=== PATIENT | female | born 1975 | race Caucasian/White ===

== ENCOUNTER 2019-09-19 10:02 | Emergency (ER) | payer OTHER, SELFPAY ==
[2019-09-19 10:27] VITALS: BP 140/95; PULSE 77; RESP 20; TEMP 36.8; O2SAT 99
--- NOTE | 2019-09-19 10:50 | ED.GENADULT ---
HPI - General Adult General Chief complaint: Upper Respiratory Infection Stated complaint: cough/congested Time Seen by Provider: 09/19/19 10:50 Source: patient and RN notes reviewed Mode of arrival: ambulatory Limitations: no limitations History of Present Illness HPI narrative: 44-year-old female presents with complains of upper respiratory infection symptoms, facial congestion and pressure, clogged ears, and dry cough for 4 days. Advil cold and sinus, Sudafed, and Benadryl with little relief. Constant dry cough. Rhinorrhea (green drainage) and nasal congestion. Denies sore throat. No high fevers, drooling, neck or throat swelling. No chest pain, wheezing, or shortness of breath. No exacerbation factors. Denies nausea, vomiting, and abdominal pain. Tolerating liquids well. All denies being , LMP 09/18/19. Some parts of this dictation were generated by voice recognition software and may contain typographical and/or grammatical inaccuracies. Related Data Allergies Allergy/AdvReac Type Severity Reaction Status Date / Time No Known Allergies Allergy Unknown Unverified 09/19/19 10:25 Review of Systems Review of Systems: Narrative: CONSTITUTIONAL: Denies fever, chills, sweats. EYES: Denies visual changes, redness, discharge. ENT: Complains of rhinorrhea, congestion, facial pressure and congestion, clogged ears. Denies sore throat, otalgia. CARDIOVASCULAR: Denies chest pain, palpitations, edema. RESPIRATORY: Denies dyspnea, wheezing. Complains of dry cough. GASTROINTESTINAL: Denies abdominal pain, nausea, vomiting, diarrhea. GENITOURINARY: Denies dysuria, hematuria, abnormal discharge. SKIN: Denies rash or itching. MUSCULOSKELETAL: Denies acute back pain, joint pain, or myalgia. NEUROLOGIC: Denies numbness or focal weakness. PSYCHIATRIC: Denies anxiety or depression. All systems reviewed & are unremarkable except as noted in HPI and below. [facility] Past Medical History Medical History (Updated 09/24/19 @ 00:14 by PB Nichols) Hypertension Ovarian cyst Surgical History Surgical History (Updated 09/24/19 @ 00:14 by PB Nichols) History of elbow surgery History of endometrial ablation History of tonsillectomy Family History Family History Grandparent Diabetes mellitus Cerebrovascular accident Carcinoma of colon Mother Hypertension Family history of malignant neoplasm of breast in first degree relative, Onset Age: 49 Social History Social History (Updated 09/24/19 @ 00:09 by PB Nichols) Smoking status: Never smoker Second hand tobacco smoke exposure: No Alcohol intake: current Substance use: never Living arrangements: with family Occupation/Education: occupation Gender identity (if verbalized by the patient): Female Comments At time of signature, agree with nurse past medical, surgical, social, and family history. There is no relevant family history pertinent to the presenting complaint. Exam Narrative: Exam Narrative: GENERAL: This is a well-nourished, well-developed patient, in no apparent distress. Talks in full sentences and ambulates with steady gait without dyspnea. HEAD: normocephalic, atraumatic. EYES: PERRL. Sclera clear/white. Vision is grossly intact. EARS: External ears normal, auditory canals clear and without drainage, TMs normal without perforation. Hearing grossly intact. NOSE: External nose normal with no obvious nasal discharge, nares with moderate redness and enlarged turbinates, clear rhinorrhea. THROAT: Mucous membranes moist, posterior pharynx clear. Mild erythema, no exudate, and no tonsils. NECK: Neck supple, non-tender without lymphadenopathy, masses or thyromegaly. CARDIOVASCULAR: Regular rate and rhythm without murmurs, gallops, or rubs. RESPIRATORY: Clear to auscultation. Breath sounds equal bilaterally. No wheezes, rales, or rhonchi. Dry cough. GASTROINTE
== END 2019-09-19 11:09 | disposition home or self-care (01) ==
PROVIDERS: Emergency Provider Nurse Practitioner Family
DX: J40 Bronchitis, not specified as acute or chronic (principal)
CPT/HCPCS: 87804; 99213; G0463

== ENCOUNTER 2019-10-05 08:39 | Outpatient (CLI) | payer OTHER, SELFPAY ==
--- NOTE | ~2019-10-05 | MMUS_ITS ---
EXAMINATION: MM diagnostic mammo unilat LT, US breast LT limited HISTORY: Benign left breast biopsy recently. TECHNIQUE: Additional 3-D tomosynthesis images of the left breast were performed and synthetic 2-D im ages were generated. CAD analysis was submitted and interpreted. High resolution left breast ultrasou nd was performed. COMPARISON: Comparison to multiple prior studies sequentially, with oldest reviewed study dated 03/06. FINDINGS: MAMMOGRAPHIC FINDINGS: The breasts are heterogenously dense, which may obscure small masses. Subareolar asymmetries of the l eft breast are unchanged allowing for differences of technique. No new masses, calcifications or arch itectural distortion. ULTRASOUND: At 12:00, 6.5 cm from the nipple, there is a 1 cm intramammary lymph node. At 12:00, 4 cm from the ni pple there is a cluster of cysts measuring 6 mm in conglomeration. Also at this location there is an 8 mm simple cyst. No suspicious masses are identified to suggest malignancy. IMPRESSION: 1. Benign left breast masses. No evidence for malignancy. 2. Routine yearly screening mammogram and regular clinical breast examination are recommended. BI-RADS CATEGORY 2 - BENIGN FINDINGS Reviewed, dictated and finalized at location A. [facility] IMPRESSION: 1. Benign left breast masses. No evidence for malignancy. 2. Routine yearly screening mammogram and regular clinical breast examination a re recommended. BI-RADS CATEGORY 2 - BENIGN FINDINGS
== END 2019-10-05 08:40 | disposition home or self-care (01) ==
LOC: CHSIMG 08:42
PROVIDERS: PCP Nurse Practitioner Family; Visit Provider Student in an Organized Health Care Education/Training Program
DX: R92.8 Other abnormal and inconclusive findings on diagnostic imaging of breast (principal)
CPT/HCPCS: 76642; 77065

== ENCOUNTER 2020-02-15 11:59 | Outpatient (CLI) | payer OTHER, SELFPAY ==
[2020-02-15 13:39] LABS: Alanine Aminotransferase 28 U/L (14-59); Albumin Level 3.9 g/dL (3.4-5.0); Alkaline Phosphatase 76 U/L (46-116); Anion Gap 13.3 mmol/L (7-16); Aspartate Amino Transferase 23 U/L (15-37); Bilirubin,Total 0.3 mg/dL (0.00-1.00); Blood Urea Nitrogen 10 mg/dL (7-18); Calcium 9.1 mg/dL (8.5-10.1); Carbon Dioxide 26 mmol/L (21-32); Chloride 101 mmol/L (98-108); Estimated Glomerular Filt Rate > 60; Free T4 Free Thyroxine 0.96 ng/dL (0.76-1.46); Glucose 92 mg/dL (70-99); Magnesium 2.1 mg/dL (1.8-2.4); Osmolality Calculated 281 mOsm/kg (285-295); Potassium 4.3 mmol/L (3.5-5.1); Sodium 136 mmol/L (136-145); Total Protein 7.1 g/dL (6.4-8.2); Vitamin B12 295 pg/mL (193-986)
[2020-02-17 21:22] LABS: Vitamin D 25 Hydroxy 24 ng/mL (30-100)
== END 2020-02-15 12:00 | disposition home or self-care (01) ==
LOC: CHSLAB 12:01
PROVIDERS: PCP Nurse Practitioner Family; Visit Provider Nurse Practitioner Family
DX: R42 Dizziness and giddiness (principal); R63.5 Abnormal weight gain
CPT/HCPCS: 36415; 80053; 82306; 82607; 83735; 84439; 84443

== ENCOUNTER 2020-03-28 07:37 | Outpatient (CLI) | payer OTHER, SELFPAY ==
--- NOTE | ~2020-03-28 | MM_ITS ---
EXAMINATION: MM screening anselmo BI w ej HISTORY: Screening mammogram TECHNIQUE: Craniocaudal and mediolateral oblique 3-D tomosynthesis images were obtained and synthetic 2-D images were generated. CAD analysis was submitted and interpreted. COMPARISON: 10/01/2019 diagnostic left mammogram and limited left breast ultrasound 03/30/2019 limited left breast ultrasound 03/26/2019 diagnostic left mammogram and ultrasound 03/25/2019 bilateral digital screening mammogram BREAST PARENCHYMAL COMPOSITION: The breasts are heterogeneously dense, which may obscure small masses . FINDINGS: Scattered bilateral asymmetries and possible masses. Bilateral diagnostic mammography and b ilateral breast ultrasound examination are recommended. IMPRESSION: 1. Bilateral mammographic asymmetries and possible breast masses 2. Bilateral diagnostic mammography and bilateral breast ultrasound examination are recommended. BI-RADS Category 0: Incomplete: Needs additional imaging evaluation. Reviewed, dictated and finalized at location A.
== END 2020-03-28 07:38 | disposition home or self-care (01) ==
LOC: CHSIMG 07:39
PROVIDERS: PCP Nurse Practitioner Family; Visit Provider Student in an Organized Health Care Education/Training Program
DX: Z12.31 Encounter for screening mammogram for malignant neoplasm of breast (principal)
CPT/HCPCS: 77063; 77067

== ENCOUNTER 2020-03-29 07:22 | Outpatient (CLI) | payer OTHER, SELFPAY ==
--- NOTE | ~2020-03-29 | MMUS_ITS ---
EXAMINATION: MM diagnostic anselmo BI w ej, US breast BI complete HISTORY: Bilateral mammographic asymmetries and possible breast masses reported on 03/28/2020 screenin g mammogram TECHNIQUE: Additional 3-D tomosynthesis images of both breasts were performed and synthetic 2-D image s were generated. CAD analysis was submitted and interpreted. High resolution complete bilateral miah st ultrasound was performed. COMPARISON: 03/28/2020 bilateral digital screening mammogram 10/05/2019 is no significant left digital mammogram and limited left breast ultrasound 03/30/2019 bilateral digital screening mammogram and limited left breast ultrasound 03/26/2019 diagnostic unilateral mammogram and ultrasound 03/25/2019 bilateral digital screening mammogram BREAST PARENCHYMAL COMPOSITION: The breasts are heterogeneously dense, which may obscure small masses . FINDINGS: MAMMOGRAPHIC FINDINGS: No suspicious mass or architectural distortion, malignant calcification, skin thickening or retractio n is evident. ULTRASOUND: Right breast 1:00 near nipple: Parallel circumscribed 5.2 x 10.2 mm hypoechoic lesion with some inter nal vascularity on color flow imaging. There is no suspicious shadowing. This is probably benign. Scattered subcentimeter hypoechoic or sonolucent lesions are noted elsewhere in the breasts without s uspicious vascularity or posterior shadowing. IMPRESSION: 1. No mammographic evidence of malignancy 2. Routine annual mammographic screening is recommended. BI-RADS Category 2: Benign finding(s). Reviewed, dictated and finalized at location A. IMPRESSION: 1. No mammographic evidence of malignancy 2. Routine annual mammographic screening is recommended. BI-RADS Category 2: Benign finding(s).
== END 2020-03-29 07:23 | disposition home or self-care (01) ==
PROVIDERS: PCP Nurse Practitioner Family; Visit Provider Student in an Organized Health Care Education/Training Program
DX: R92.8 Other abnormal and inconclusive findings on diagnostic imaging of breast (principal)
CPT/HCPCS: 76641; 77062; 77066; G0279

== ENCOUNTER 2020-05-04 22:26 | Emergency (ER) | payer OTHER, SELFPAY ==
--- NOTE | 2020-05-04 22:35 | ED.HEATRA ---
HPI - Head Injury General Chief complaint: Head Injury Stated complaint: busted head open Time Seen by Provider: 05/04/20 22:35 Source: patient Mode of arrival: ambulatory Limitations: no limitations History of Present Illness HPI Narrative: 41-year-old woman comes in today complaining of a head injury after slipping on her bathroom floor. She states that she struck the right side of her head on an open drawer. She denies loss of consciousness and denies any other injury. She complains of some head pain but no nausea. She states she had a glass of wine this evening. she has no history of seizures or significant head injury. Complaint: head injury Onset (ago): minute(s) (20) Mechanism of Injury: fall Place: home Loss of Consciousness: no Location of injury: frontal Quality: sharp Radiation: none Other Injuries: laceration Related Data Allergies Allergy/AdvReac Type Severity Reaction Status Date / Time No Known Allergies Allergy Unknown Unverified 02/15/20 11:43 Review of Systems Constitutional: Constitutional: Denies chills and Denies fever(s) Eyes: Eyes: Denies change in vision and Denies photophobia ENT: Denies epistaxis Gastrointestinal: Gastrointestinal: Denies nausea and Denies vomiting Musculoskeletal: Musculoskeletal: Denies arthralgias and Denies joint swelling Integumentary/Breasts: Skin/Breast: Denies pruritus, Denies erythema and Denies rash Comments: Right brow laceration Neurologic: Denies vertigo, Denies dizziness, Denies syncope, Reports headache(s), Denies focal weakness and Denies numbness Hematologic/Lymphatic: Hematologic/Lymphatic: Denies easy bleeding and Denies easy bruising PMFSH Past Medical History Medical History Hypertension Ovarian cyst Surgical History Surgical History History of elbow surgery History of endometrial ablation History of tonsillectomy Social History Social History Smoking status: Never smoker Second hand tobacco smoke exposure: No Alcohol intake: current Substance use: never Gender identity (if verbalized by the patient): Female Exam Const: General: healthy appearing and alert Orientation/consciousness: patient oriented x3 Limitations: no limitations Other: mild acute distress HENMT: Head: normal to inspection Ears: external ears normal, TM's normal bilaterally and EAC's normal General nose exam: Normal nares present Mouth: Yes moist mucous membranes Throat: posterior oropharynx normal Other: 2.5 cm laceration just above and parallel with the right eyebrow. Eyes: Conjunctivae: conjunctivae normal Pupils: Equal, round and reactive pupils present EOM: EOMs intact bilaterally Resp: Effort & Inspection: normal respiratory effort and not labored Auscultation: clear to auscultation bilaterally, no rales, no rhonchi and no wheezes Skin: General skin exam: normal color, no jaundice and no pallor Rashes: no rashes Neuro: General: patient oriented x3 and no focal motor deficits Cranial nerves: Yes CN's II-XII intact bilaterally Speech: normal speech Gait exam (Neuro): Normal gait present Extrem: General: normal to inspection and no clubbing, cyanosis or edema Psych: Appearance: grossly normal and well kempt Mental Status: mental status grossly normal Affect: normal affect Attitude: cooperative Thought content: Yes Normal thought content present Procedures Laceration Laceration 1: Date: 05/04/20 Time: 23:00 Site: face Size (cm): 2.5 Description: linear and clean Depth: simple, single layer Local Anesthetic: lidocaine 1% and with epi Amount of anesthesia used (mL): 3.5 Pre-repair: wound explored and irrigated extensively ====== Skin Level ====== Skin layer closed with: nylon Size (cm): 5-
[2020-05-04 22:36] VITALS: BP 160/89; PULSE 86; RESP 16; TEMP 36.7; O2SAT 99
[2020-05-04] MEDS: LIDO 1%/EPINEPHRINE 1:100,000 20 ML VIAL 10 ML INFILTRATE (23:00)
[2020-05-04] MEDS: TETANUS,DIPHTHERIA,AC PERTUSSIS ADULT 0.5 ML (ADACEL) IM (23:12)
[2020-05-04] MEDS: NEOMYCIN/POLYMYXIN/BACITRACIN OINTMENT PACKET 1 PACKET (23:13)
[2020-05-04 23:28] VITALS: BP 136/86; PULSE 78; RESP 16; O2SAT 98
== END 2020-05-04 23:29 | disposition home or self-care (01) ==
PROVIDERS: Emergency Provider Emergency Medicine; PCP Nurse Practitioner Family
DX: S01.81XA Laceration without foreign body of other part of head, initial encounter (principal); W19.XXXA Unspecified fall, initial encounter
CPT/HCPCS: 12011; 90471; 90715; 99282; 99283

== ENCOUNTER 2020-11-04 10:25 | Outpatient (CLI) | payer OTHER, SELFPAY ==
[2020-11-04 10:41] LABS: Basophils Absolute Auto 0.07 K/mm3 (0.00-0.10); Basophils Percent Auto 0.5 % (0.0-1.0); Eosinophils Percent Auto 2.8 % (1.0-6.0); Hematocrit 39.5 % (35.0-49.0); Immature Granulocyte Absolute 0.11 K/mm3 (0.00-0.00); Immature Granulocyte Percent A 0.8 % (0.0-0.0); Lymphocytes Absolute Auto 3.34 K/mm3 (1.10-4.50); Lymphocytes Percent Auto 23.3 % (18.0-42.0); Mean Corpuscular HGB Conc 32.9 g/dL (32.0-36.0); Mean Corpuscular Hemoglobin 30.8 pg (27.0-31.0); Mean Corpuscular Volume 93.6 fL (78.0-102.0); Mean Platelet Volume 11.2 fl (9.2-11.8); Monocytes Absolute Auto 0.63 K/mm3 (0.10-0.90); Monocytes Percent Auto 4.4 % (2.0-11.0); Neutrophils Absolute Auto 9.8 K/mm3 (1.7-7.2); Neutrophils Percent Auto 68.2 % (50.0-70.0); Platelet Count Result 298 K/mm3 (150-420); Red Blood Count 4.22 M/mm3 (4.20-5.40); Red Cell Distribution Width 13.1 % (11.6-14.4); White Blood Count 14.3 K/mm3 (4.8-10.8)
[2020-11-08 20:05] LABS: Lyme Disease Ab (IgM), Blot Negative (Negative); Lyme Disease Ab(IgG), Blot Negative (Negative)
== END 2020-11-04 10:26 | disposition home or self-care (01) ==
LOC: CHSLAB 10:28
PROVIDERS: PCP Nurse Practitioner Family; Visit Provider Nurse Practitioner Family
DX: T14.8XXA Other injury of unspecified body region, initial encounter (principal); W57.XXXA Bitten or stung by nonvenomous insect and other nonvenomous arthropods, initial encounter
CPT/HCPCS: 36415; 85025; 86617; 86666; 86757

== ENCOUNTER 2020-11-18 10:04 | Outpatient (CLI) | payer OTHER, SELFPAY ==
[2020-11-22 20:46] LABS: Lyme Disease Ab (IgM), Blot Negative (Negative); Lyme Disease Ab(IgG), Blot Negative (Negative)
== END 2020-11-18 10:05 | disposition home or self-care (01) ==
LOC: CHSLAB 10:07
PROVIDERS: PCP Nurse Practitioner Family; Visit Provider Nurse Practitioner Family
DX: T14.8XXA Other injury of unspecified body region, initial encounter (principal); W57.XXXA Bitten or stung by nonvenomous insect and other nonvenomous arthropods, initial encounter
CPT/HCPCS: 36415; 86617; 86666; 86757

== ENCOUNTER 2020-11-28 09:06 | Outpatient (CLI) | payer OTHER, SELFPAY ==
[2020-11-28 10:13] LABS: Alanine Aminotransferase 32 U/L (14-59); Alkaline Phosphatase 84 U/L (46-116); Anion Gap 10 mmol/L (8-16); Aspartate Amino Transferase 20 U/L (15-37); Bilirubin,Total 0.5 mg/dL (0.00-1.00); Blood Urea Nitrogen 9 mg/dL (7-18); Calcium 9.1 mg/dL (8.5-10.1); Carbon Dioxide 24 mmol/L (21-32); Chloride 104 mmol/L (98-108); Creatine Kinase 103 U/L (26-192); Estimated Glomerular Filt Rate > 60; Glucose 90 mg/dL (70-99); Osmolality Calculated 284 mOsm/kg (285-295); Potassium 4.1 mmol/L (3.5-5.1); Sodium 138 mmol/L (136-145); Total Protein 7.3 g/dL (6.4-8.2)
[2020-12-01 17:29] LABS: Vitamin D 25 Hydroxy 11 ng/mL (30-100)
== END 2020-11-28 09:07 | disposition home or self-care (01) ==
PROVIDERS: PCP Nurse Practitioner Family; Visit Provider Nurse Practitioner Family
DX: E55.9 Vitamin D deficiency, unspecified (principal); R53.83 Other fatigue; W57.XXXA Bitten or stung by nonvenomous insect and other nonvenomous arthropods, initial encounter
CPT/HCPCS: 36415; 80053; 82306; 82550

== ENCOUNTER 2021-02-02 08:55 | Outpatient (CLI) | payer OTHER, SELFPAY ==
--- NOTE | 2021-02-02 09:06 | ECG_ITS ---
Measurements Intervals [place] Rate: 66 P: 71 CT: 180 QRS: 75 QRSD: 97 T: 38 QT: 402 QTc: 422 Interpretive Statements SINUS RHYTHM LOW QRS VOLTAGE IN PRECORDIAL LEADS BASELINE ARTIFACT- II, III, AVR, AVL, AVF BORDERLINE ECG Electronically Signed On 02-02-2021 11:49:49 CDT by Delroy Comer D.O.
== END 2021-02-02 08:56 | disposition home or self-care (01) ==
LOC: CHSCARD 08:58
PROVIDERS: PCP Nurse Practitioner Family; Visit Provider Anesthesiology
DX: I10 Essential (primary) hypertension (principal)
CPT/HCPCS: 93005

== ENCOUNTER 2021-02-10 01:05 | Day surgery (SDC) | payer OTHER, SELFPAY ==
[2021-01-31 13:37] VITALS: BMI 36.6
--- NOTE | 2021-02-09 15:36 | PM.IMHP ---
H&P: HPI History of Present Illness Date/Time: 02/09/21 15:36 Patient is a 46 year old woman with a long history of abnormal uterine bleeding. She has exhausted several medical and surgical management options. She had an endometrial ablation in 2016 and did well for a while afterwards, however, developed recurrence of heavy and prolonged menses. Patient has tried a few different OCPs without success. Most recently, patient experienced a prolonged menses that lasted four weeks despite continuous hormonal regulation. Patient reports feeling increasingly more tired and drained from the prolonged bleeding and desires definitive surgical management with a hysterectomy. In general, she reports feeling well today without complaints. Chief Complaint: abnormal uterine bleeding Review of Systems Review of Systems: All systems reviewed & are unremarkable except as noted in HPI and below Constitutional: Constitutional: Reports as per HPI, Reports no additional constitutional complaints, Denies chills, Denies fever(s), Denies headache(s) and Denies night sweats Eyes: Eyes: Reports as per HPI and Reports no additional eye complaints ENT: Reports system reviewed and no additional complaints, except as documented, Reports as per HPI, Reports Normal hearing present and Denies headache(s) Cardiovascular: Cardiovascular: Reports as per HPI, Reports no additional cardiovascular complaints, Denies chest pain and Denies dyspnea Respiratory: Respiratory: Reports as per HPI, Reports no additional respiratory complaints, Denies cough and Denies dyspnea Gastrointestinal: Gastrointestinal: Reports as per HPI, Reports no additional gastrointestinal complaints, Denies abdominal pain, Denies change in bowel habits, Denies change in stool character, Denies nausea and Denies vomiting Genitourinary: Genitourinary: Reports no additional female genitourinary complaints, Reports as per HPI, Denies abnormal vaginal bleeding, Denies genital lesions, Denies hot flashes, Denies dyspareunia, Denies pelvic pain, Denies sexual dysfunction, Denies urinary incontinence, Denies vaginal discharge, Denies vaginal dryness and Denies vaginal odor Musculoskeletal: Musculoskeletal: Reports no additional musculoskeletal complaints and Reports as per HPI Integumentary/Breasts: Skin/Breast: Reports system reviewed and no additional complaints, except as docu, Reports as per HPI, Denies breast pain and Denies nipple discharge Neurologic: Reports system reviewed and no additional complaints, except as documented, Reports as per HPI, Reports Normal hearing present and Denies headache(s) Psychiatric: Psychiatric: Reports no additional psychiatric complaints, Reports as per HPI, Denies anxiety and Denies depression Endocrine: Endocrine: Reports no additional endocrine complaints and Reports as per HPI Hematologic/Lymphatic: Hematologic/Lymphatic: Reports no additional hematologic/lymphatic complaints and Reports as per HPI Allergic/Immunologic: Allergic/Immunologic: Reports no additional allergic/immunologic complaints and Reports as per HPI PMF Past Medical History Medical History Acute sinusitis BMI greater than 30 Breast pain, right Fatigue Hypertension Maxillary sinusitis Ovarian cyst Vaginal delivery x 2 Surgical History Surgical History History of bilateral tubal ligation History of elbow surgery History of endometrial ablation History of tonsillectomy Family History Family History Grandparent Diabetes mellitus Cerebrovascular accident Carcinoma of colon Mother Hypertension Family history of malignant neoplasm of breast in first degree relative, Onset Age: 49 Social History Social History Smoking status: Never smoker Second hand tobacco smoke exposure: No Alc
[2021-02-10] VITALS (10 sets, daily range): BP systolic 100–135; BP diastolic 1–89; PULSE 64–90; RESP 14–18; TEMP 36.5–37.1; O2SAT 91–98; BMI 36.4
[2021-02-10] MEDS: LACTATED RINGERS 1,000 ML 30 ML IV CONT ×2 (06:53→11:22)
[2021-02-10] MEDS: KETOROLAC 15 MG/ML VIAL (*BKC) IV PUSH (06:54)
[2021-02-10] MEDS: ACETAMINOPHEN 500 MG TABLET 1000 MG PO (06:54)
--- NOTE | 2021-02-10 07:00 | WPDANESEPPF ---
Anes - Initial Pre Proc Eval Procedure: Operation Date: 02/10/21 07:30 Proposed Procedures p Laparoscopic Assisted Vaginal Hysterectomy, Bilateral Salpingectomy - Shawna Watson MD Date/Time: 02/10/21 07:00 Surgeon: Shawna Watson MD Pre Op Diagnosis: abn uterine bleeding Patient Data Age: 46 Gender: F Height: 1.65 m Weight: 100 kg Allergies Allergy/AdvReac Type Severity Reaction Status Date / Time No Known Allergies Allergy Unknown Verified 02/01/21 09:11 Home Medications Medication Instructions Recorded Confirmed Type lactobacillus combination no.8 3 3,000 mmu cells PO DAILY 10/05/20 02/01/21 History billion cell capsule multivitamin 1 tablet PO DAILY 10/05/20 02/01/21 History ergocalciferol (vitamin D2) 1,250 1,250 mcg PO WEEKLY #12 cap 12/02/20 02/01/21 Rx mcg (50,000 unit) capsule escitalopram oxalate [Lexapro] 10 mg PO DAILY 01/31/21 02/01/21 History naltrexone-bupropion [Contrave] 1 tablet PO BID 01/31/21 02/01/21 History omeprazole 20 mg PO BID 01/31/21 02/01/21 History propranolol 40 mg PO BID 01/31/21 02/01/21 History Patient hx anesthesia problems: none Family hx anesthesia problems: none PMFSH Past Medical History Medical History Acute sinusitis BMI greater than 30 Breast pain, right Fatigue Hypertension Maxillary sinusitis Ovarian cyst Vaginal delivery x 2 Surgical History Surgical History History of bilateral tubal ligation History of elbow surgery History of endometrial ablation History of tonsillectomy Family History Family History Grandparent Diabetes mellitus Cerebrovascular accident Carcinoma of colon Mother Hypertension Family history of malignant neoplasm of breast in first degree relative, Onset Age: 49 Social History Social History Smoking status: Never smoker Second hand tobacco smoke exposure: No Alcohol intake: current Substance use: never Substance use type: does not use Living arrangements: with family Gender identity (if verbalized by the patient): Female Sexual Orientation (if Verbalized by the Patient): Straight or Heterosexual Spiritual care concerns: No Anes - Eval Final PreProcedure Day of Procedure 02/10/21 07:00 Patient weight: obese Heart: regular rate and rhythm Lungs: clear to auscultation Airway: Mallampati scale class II Neurological: alert and oriented Last oral intake: >/= 8 hours ASA classification: III Emergent: no Anesthesia type and monitoring: general ETT and standard monitoring Informed Consent: The patient's anesthetic plan and its attendant risks and benefits were discussed with the patient/family/POA. Questions were solicited and answers provided to the satisfaction of the patient/family/POA.
--- NOTE | 2021-02-10 07:13 | WPDHPUPDATE1 ---
History and Physical Update Update Date/Time: 02/10/21 07:13 History and Physical has been reviewed, including an updated exam of the patient. There are NO changes in the patient's condition. Risks, benefits, and alternatives have been discussed and questions answered. Patient agrees to proceed with procedure.
--- NOTE | 2021-02-10 07:16 | W.PM.PROC2 ---
Procedure Note - Detailed Date of Procedure 02/10/21 Pre-op Diagnosis Abnormal uterine bleeding Post-op Diagnosis same Procedure Performed Laparoscopic assisted vaginal hysterectomy Bilateral salpingectomy Surgeon Shawna Watson MD Make Up Worker Jessie Yadav Anesthesia general Findings Grossly normal appearing uterus and ovaries bilaterally, fallopian tubes also grossly normal in appearance with evidence of prior interruption, however, right tube not as clearly delineated; normal appearing liver and appendix Description of Procedure The patient was taken to the operating room, where she self-transferred to the operating room table. She was placed in dorsal supine position. General anesthesia was administered without difficulty and found to be adequate. The patient was repositioned in dorsal lithotomy position with the use of Vlad stirrups and arms were carefully tucked at her side. She was prepped and draped in usual sterile fashion. A Cook catheter was inserted using sterile technique. A bivalve speculum was then placed into the vagina. With good visualization of the cervix, the anterior lip of the cervix was grasped with a single-tooth tenaculum. The uterus was sounded to 6 cm. The cervix was then serially dilated to accommodate the insertion of a HUMI uterine manipulator, which was inserted into the uterus for use during the laparoscopic portion of the case. The tenaculum and speculum were removed. Astrophysics Teacher's gloves were changed. Attention was then turned to the patient's abdomen. A small infraumbilical incision was made with a scalpel. While tenting the abdominal wall up, a Veress needle was inserted into the abdominal cavity. Intra-abdominal confirmation was made with saline. Carbon dioxide tubing was connected to the Veress needle and insufflation was begun. The abdomen was insufflated to 15 mmHg. Once adequate pneumoperitoneum was achieved, the Veress needle was removed and a 5 mm Optiview trocar was then inserted into the abdominal cavity under direct visualization with the laparoscope. The trocar was removed. The laparoscope was reintroduced into the abdominal cavity through the sheath. For enhanced visualization and completion of the procedure, two additional lateral trocars were placed, one in the left lower quadrant and one in the right lower quadrant. A small skin incision was made with a scalpel and a 5 mm trocar was placed under direct visualization. Similarly, a small skin incision was made in the left lower quadrant and an additional 5 mm trocar was placed under direct visualization. The patient was placed in Trendelenburg position. This allowed good visualization of pelvic structures and a quick survey of the abdominal and pelvic cavities was completed. The uterus appeared to be grossly. The ovaries and fallopian tubes bilaterally also appeared to be grossly normal. Fallopian tubes, however, had evidence of previous interruption. The right tube was not as clearly delineated as the left, although it was seen. No gross abnormalities of the intestines were noted and the appendix, liver and gallbladder also appeared to be within normal limits. The anterior and posterior cul-de-sacs also appeared clean without evidence of significant scarring or adhesions. The ureters were visualized bilaterally. With the use of LigaSure bipolar cautery and transection device, the left fallopian tube was identified, grasped, cauterized, and transected at the distal end. The mesosalpinx beneath the tube was serially cauterized and transected to the level of the left cornua of the uterus. The left utero-ovarian ligament was then cauterized and transected to completely separate the ovary from the uterus. The left round ligament was identified, grasped, cauterized, and transected. Using careful dissection with the LigaSure, the anterior leaf of the broad ligament was transected towards the midline, begin the creation of the bladder flap. The remainder of
[2021-02-10] MEDS: ceFAZolin 2 GM/D5W 50 ML 2 GM/50 ML BAG IVPB (07:32)
[2021-02-10] MEDS: VASOPRESSIN INJ 20 UNITS/ML VIAL XX (09:00)
[2021-02-10] MEDS: BACITRACIN OINTMENT 15 GM TUBE 1 APPLIC TOPICAL (11:02)
--- NOTE | 2021-02-10 11:06 | SUR.OPER ---
EBL:250cc, URINE:200
[2021-02-10] MEDS: fentaNYL CITRATE INJ (*CRX) 100 MCG/2 ML VIAL 25 MCG IV PUSH ×2 (11:45→12:00)
--- NOTE | 2021-02-10 12:27 | PC.NURSE ---
This patient, Emeli Benavidez, was received from PACU per bed on 02/10/21 at 1227. Patient/family oriented to unit policies and routines
[2021-02-10] MEDS: DEXTROSE 5%/0.45% SOD CHL 1,000 ML 125 ML IV CONT (13:00)
[2021-02-10] MEDS: IBUPROFEN IV 800 MG/200 ML 800 MG/200 ML BAG 400 MG IVPB (14:57)
[2021-02-10] MEDS: DOCUSATE SODIUM 100 MG CAPSULE PO (17:08)
[2021-02-10 17:21] LABS: Hepatitis B Surface Antigen Negative (Negative)
[2021-02-10 17:28] LABS: HIV 1/2 Ab P24 Ag Result Negative (Negative)
[2021-02-10 17:39] LABS: Hepatitis C Virus Antibody Negative (Negative)
[2021-02-10] MEDS: HYDROcodone/acetaminophen (*CRX) 10-325 MG TABLET 1 TAB PO ×2 (19:42→23:05)
[2021-02-10] MEDS: PROPRANOLOL HCL 40 MG TABLET PO (21:09)
[2021-02-10] MEDS: IBUPROFEN 600 MG TABLET PO (21:09)
[2021-02-10] MEDS: PANTOPRAZOLE 40 MG TABLET 20 MG PO (21:11)
[2021-02-11] MEDS: IBUPROFEN 600 MG TABLET PO ×2 (03:00→10:21)
[2021-02-11] MEDS: HYDROcodone/acetaminophen (*CRX) 5-325 MG TABLET 1 TAB PO ×2 (03:00→07:52)
[2021-02-11 04:15] VITALS: BP 102/63; PULSE 73; RESP 16; TEMP 36.9; O2SAT 94
[2021-02-11 07:30] VITALS: BP 109/72; PULSE 79; RESP 18; TEMP 37.3
[2021-02-11] MEDS: DOCUSATE SODIUM 100 MG CAPSULE PO (07:53)
--- NOTE | 2021-02-11 08:17 | WPDANESPN ---
Anes - Prog Note Post-Op Date/Time: 02/11/21 08:17 Cardiovascular status: normal Respiratory status: normal Airway patency: baseline Mental status: baseline Post-Op hydration status: normal Vital Signs: Last Vital Signs Temp 37.3 C 02/11/21 07:30 Pulse 79 02/11/21 07:30 Resp 18 02/11/21 07:30 BP 109/72 02/11/21 07:30 Pulse Ox 94 02/11/21 04:15 Pain Score (VAS): 0/10. Patient resting in bed at time of assessment, appears comfortable. I/O: Intake & Output 02/10/21 02/11/21 02/11/21 23:59 07:59 15:59 Intake Total 2000 200 Output Total 1700 225 Balance 300 -25 02/10/21 14:41 Hep Bs Antigen Negative Hepatitis C Ab Screen Negative HIV 1&2 Ab/P24 Ag 4thGn Negative Post-procedural complaints: none Patient Feedback: Patient satisfied with anesthetic care.
--- NOTE | 2021-02-11 08:27 | PM.GYNPNOP ---
MILK HANDLER - A/P Assessment and plan (1) S/P hysterectomy: Code(s): Z90.710 - Acquired absence of both cervix and uterus Status: Acute Assessment and Plan: POD#1 doing well continue routine postoperative care encourage ambulation dc home today in stable condition emergency precautions reviewed Postoperative Procedures: Procedures Operation Date: 02/10/21 07:30 Actual Procedure Side Surgeon p Laparoscopic Assisted Vaginal Hysterectomy, Bilateral Salpingectomy Bilateral Shawna Watson MD Time Spent With Patient Time: Total time spent is greater than 50% in coordination of care (as documented) at patient's floor/unit and/or counseling patient: Time with patient: less than 15 minutes MILK HANDLER- PN:Subj Post-Op Subjective Date/time seen: 02/11/21 08:27 Patient doing well this morning. States that pain is well controlled with medication. Reports mild headache this morning. Denies any chest pain, shortness of breath, nausea, or vomiting. Tolerating regular p.o. diet. Cook catheter and vaginal packing removed this morning. Has voided a small amount since then. No flatus yet. Ambulating without difficulty. Exam Const: General: cooperative, healthy appearing, comfortable and no acute distress GI: Inspection: non-distended GI Palp: Yes Soft to palpation and No Tenderness to palpation present (GI) Other: inc sites c/d/i Extrem: Right lower extremity: no edema Left lower extremity: no edema Other: no calf tenderness MILK HANDLER - PN: Obj Data Vital Signs Vital Signs: Vital Signs - 24 hr 02/10/21 11:22 02/10/21 11:35 02/10/21 11:50 Temperature 37.1 C Pulse Rate 75 65 65 Respiratory Rate 16 16 15 Blood Pressure 101/1 L 105/69 103/67 Pulse Oximetry 96 97 97 02/10/21 12:05 02/10/21 12:35 02/10/21 16:00 Temperature 36.5 C 36.9 C Pulse Rate 64 66 90 Respiratory Rate 15 18 18 Blood Pressure 110/74 100/64 108/69 Pulse Oximetry 96 91 02/10/21 20:00 02/10/21 21:09 02/10/21 23:10 Temperature 36.6 C 36.7 C Pulse Rate 88 88 89 Respiratory Rate 16 16 Blood Pressure 111/68 100/61 Pulse Oximetry 95 93 02/11/21 04:15 02/11/21 07:30 Temperature 36.9 C 37.3 C Pulse Rate 73 79 Respiratory Rate 16 18 Blood Pressure 102/63 109/72 Pulse Oximetry 94 Intake/Output Intake/Output: Intake & Output 02/08/21 02/09/21 02/10/21 02/11/21 23:59 23:59 23:59 23:59 Intake Total 4100 200 Output Total 1945 225 Balance 2155 -25 Meds/Results Medications: Active Medications Generic Name Dose Route Start Last Admin Trade Name Freq PRN Reason Stop Dose Admin Hydrocodone Bitart/Acetaminophen 1 tab 02/10/21 18:48 02/11/21 07:52 Hydrocodone/Acetaminophen (*Crx) 5-325 Mg Tablet PO 1 tab Q3H PRN Administration Moderate Pain (4-6) Hydrocodone Bitart/Acetaminophen 1 tab 02/10/21 18:48 02/10/21 23:05 Hydrocodone/Acetaminophen (*Crx) 10-325 Mg Tablet PO 1 tab Q3H PRN Administration Pain Rated 7-10 Docusate Sodium 100 mg 02/10/21 17:00 02/11/21 07:53 Docusate Sodium 100 Mg Capsule PO 100 mg BID KAITLYNN Administration Escitalopram Oxalate 10 mg 02/11/21 09:00 Escitalopram Oxalate 10 Mg Tablet PO DAILY KAITLYNN Dextrose/Sodium Chloride 1,000 mls @ 125 mls/hr 02/10/21 12:25 02/11/21 06:03 Dextrose 5% Sodium Chloride 0.45% IV CONT Not Given .Q8H KAITLYNN Ibuprofen 600 mg 02/10/21 18:48 02/11/21 03:00 Ibuprofen 600 Mg Tablet PO 600 mg Q6H PRN Administration Cramping Morphine Sulfate 4 mg 02/10/21 12:25 Morphine Sulfate (*Crx) 4 Mg/Ml Inj IV PUSH Q4H PRN Severe breakthrough pain Naloxone HCl 0.1 mg 02/10/21 12:25 Naloxone Hcl 0.4 Mg/Ml Vial IV PUSH Q2M PRN Respiratory rate less than 10 Ondansetron HCl 4 mg 02/10/21 12:25 Ondansetron Inj 4 Mg/2 Ml Vial IV PUSH Q6H PRN Nausea And Vomiting Pantoprazole Sodium 20 mg 02/10/21 21:00 02/10/21 21:11 Pantoprazole 40 Mg Tablet PO 20 mg
--- NOTE | 2021-02-11 08:32 | P.DS_ITS ---
DS: Admitting Diagnosis Admitting Diagnosis Admitting Diagnosis: Abnormal uterine bleeding DS: Summary Hospital Course Hospital Course: Uncomplicated Time Spent with Patient Time attestation: Total time spent providing and/or coordinating discharge services: DS: Data Data Completed and Pending Pending studies at discharge: Pending at discharge 02/10/21 11:02 Surgical [PTH] Routine Labs on day of discharge: Labs from last 24 hours 02/10/21 14:41 Hep Bs Antigen Negative Hepatitis C Ab Screen Negative HIV 1&2 Ab/P24 Ag 4thGn Negative Discharge Plan Discharge Patient Disposition: Home, Self-Care Discharge Instructions: Call office [phone] to schedule postoperative visit in 2 weeks. You may take Ibuprofen 600mg every 6 hours as needed for pain. I have sent a prescription for a stronger pain medication, [place], to your pharmacy. You may take this as prescribed for breakthrough pain (pain that is not controlled with Ibuprofen). No driving for at least two weeks. You also may not drive while taking narcotics. Pain medication may make you constipated. It may be helpful to take an jvai-[id number] stool softener, such as Colace and/or Senokot, along with the pain medication to help lessen constipation. Call office or go to ED for pain not controlled with medication, headache, chest pain, shortness of breath, fever, chills, persistent nausea or vomiting, severe abdominal pain, heavy vaginal bleeding >2 pads/hour, foul vaginal discharge or odor, or any redness near incisions, Stand Alone Forms: General Discharge Instructions Follow-up/Referrals: Shawna Watson MD [Physician] - Discharge Medications: New hydrocodone-acetaminophen 5-325 mg Tablet 1 - 2 tablet PO Q4-6H PRN (Reason: Moderate Pain (4-6)) 7 Days Qty: 20 RF: 0 Continued multivitamin Tablet 1 tablet PO DAILY RF: 0 Adult Probiotic 3 billion cell capsule 3,000 mmu cells PO DAILY RF: 0 escitalopram oxalate [Lexapro] 10 mg tablet 10 mg PO DAILY RF: 0 propranolol 40 mg tablet 40 mg PO BID RF: 0 omeprazole 20 mg capsule,delayed release(DR/EC) 20 mg PO BID RF: 0 Contrave 8-90 mg tablet extended release 1 tablet PO BID RF: 0 ergocalciferol (vitamin D2) 1,250 mcg (50,000 unit) capsule 1,250 mcg PO WEEKLY Qty: 12 RF: 0
[2021-02-11] MEDS: PANTOPRAZOLE 40 MG TABLET 20 MG PO (10:16)
[2021-02-11 10:17] VITALS: PULSE 80
[2021-02-11] MEDS: PROPRANOLOL HCL 40 MG TABLET PO (10:17)
== END 2021-02-11 10:36 | disposition home or self-care (01) ==
LOC: ANHSURGERY 06:29 → ANHOB2 13:03
PROVIDERS: PCP Nurse Practitioner Family; Visit Provider Student in an Organized Health Care Education/Training Program
PROC: 0UT9FZZ Resection of Uterus, Via Natural or Artificial Opening With Percutaneous Endoscopic Assistance (ICD-10-PCS; CPT 58552; principal; 2021-02-10 07:30)
DX: N93.9 Abnormal uterine and vaginal bleeding, unspecified (principal); N80.0 Endometriosis of uterus; N73.6 Female pelvic peritoneal adhesions (postinfective); I10 Essential (primary) hypertension; E66.9 Obesity, unspecified; Z68.36 Body mass index [BMI] 36.0-36.9, adult
CPT/HCPCS: 58552; 36415; 86703; 86803; 86850; 86900; 86901; 87340; 88307; 99199; A9270; C9290; G0432; J0131; J0690; J1100; J1170; J1741; J1885; J2250; J2405; J2704; J2710; J3010; J7030; J7120

== ENCOUNTER 2021-03-29 08:46 | Outpatient (CLI) | payer OTHER, SELFPAY ==
--- NOTE | ~2021-03-29 | MM_ITS ---
EXAMINATION: MM screening anselmo BI w ej HISTORY: Screening mammogram, family history of breast cancer in her mother. TECHNIQUE: Craniocaudal and mediolateral oblique 3-D tomosynthesis images were obtained and synthetic 2-D images were generated. CAD analysis was submitted and interpreted. COMPARISON: 03/29/2020, 03/28/2020, 10/05/2019, 03/26/2019, 03/25/2019 BREAST PARENCHYMAL COMPOSITION: There are scattered areas of fibroglandular density. FINDINGS: There are stable bilateral low density masses, consistent with benign findings given the la ck of interval change. There is no evidence of suspicious mass, calcification, or architectural disto rtion to suggest malignancy in either breast. There has been no suspicious interval change. IMPRESSION: 1. No mammographic evidence of malignancy. 2. Recommend routine screening mammography in one year. BI-RADS Category 2: Benign finding(s). Reviewed, dictated and finalized at location A.
== END 2021-03-29 08:47 | disposition home or self-care (01) ==
PROVIDERS: PCP Nurse Practitioner Family; Visit Provider Student in an Organized Health Care Education/Training Program
DX: Z12.31 Encounter for screening mammogram for malignant neoplasm of breast (principal)
CPT/HCPCS: 77063; 77067

== ENCOUNTER 2021-04-21 09:08 | Outpatient (CLI) | payer OTHER, SELFPAY ==
[2021-04-21 11:08] LABS: SARS-CoV-2 RNA PCR Negative (Negative)
== END 2021-04-21 09:09 | disposition home or self-care (01) ==
LOC: CHSLAB 09:09
PROVIDERS: PCP Nurse Practitioner Family; Visit Provider Nurse Practitioner Family
DX: R09.81 Nasal congestion (principal); Z20.822 Contact with and (suspected) exposure to COVID-19
CPT/HCPCS: C9803; U0003; U0005

== ENCOUNTER 2021-07-10 12:55 | Outpatient (CLI) | payer OTHER, SELFPAY ==
--- NOTE | ~2021-07-10 | XR_ITS ---
EXAMINATION: XR finger 5th RT min 2V DATE: 07/10/2021 13:16 INDICATION: Right hand fifth digit injury. TECHNIQUE: 3 views of right hand fifth digit were obtained. COMPARISON: None. FINDINGS: Bone alignment is normal. No fracture. There is mild osteoarthritis of fifth distal interph alangeal joint. IMPRESSION: 1. 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 Reviewed, dictated and finalized at location A. N KEEPER
== END 2021-07-10 12:56 | disposition home or self-care (01) ==
LOC: CHSLAB 12:58
PROVIDERS: PCP Nurse Practitioner Family; Visit Provider Nurse Practitioner Family
DX: M79.89 Other specified soft tissue disorders (principal)
CPT/HCPCS: 73140

== ENCOUNTER 2021-09-27 09:49 | Outpatient (CLI) | payer OTHER, SELFPAY ==
--- NOTE | ~2021-09-27 | CT_ITS ---
EXAMINATION: CT sinus wo con DATE: 09/27/2021 10:11 INDICATION: Chronic sinusitis. Nasal congestion, sore throat TECHNIQUE: Computed tomography (CT) of the paranasal sinuses was performed without contrast. Iterativ e reconstruction technique was employed. Exam dose: 250.27 mGy-cm total exam DLP. COMPARISON: None FINDINGS: There is minimal rightward bowing of the anterior aspect of the nasal septum and minimal le ftward bowing of the more posterior aspect of the nasal septum. The there is moderate symmetric soft tissue swelling of the nasal turbinates. The ostiomeatal units are patent. There is a 4 mm osteoma of the right ethmoid region. There is an opacified mid left ethmoid air cell. The paranasal sinuses are otherwise normally develop ed and aerated. The mastoid air cells are normally developed and aerated. Middle and inner ear apparatus appear normal. IMPRESSION: Minimal bowing of the nasal septum Moderate prominence of the nasal turbinates Patent ostiomeatal units 4 mm right ethmoid osteoma Isolated opacified left ethmoid air cell; paranasal sinuses are otherwise unremarkable Normal mastoid air cells Reviewed, dictated and finalized at Location A. Reviewed, dictated and finalized at location B. LRY BENCH WORKER IMPRESSION: Minimal bowing of the nasal septum Moderate prominence of the nasal turbinates Patent ostiomeatal units 4 mm right ethmoid osteoma Isolated opacified left ethmoid air cell; paranasal sinuses are otherwise unrem arkable Normal mastoid air cells
== END 2021-09-27 09:50 | disposition home or self-care (01) ==
PROVIDERS: PCP Family Medicine; Visit Provider Family Medicine
DX: J32.9 Chronic sinusitis, unspecified (principal)
CPT/HCPCS: 70486

== ENCOUNTER 2021-09-29 13:05 | Outpatient (CLI) | payer OTHER, SELFPAY | END 2021-09-29 13:06 | disposition home or self-care (01) | LOC: CHSLAB 13:06 | PROVIDERS: PCP Family Medicine; Visit Provider Family Medicine | DX: R19.7 Diarrhea, unspecified (principal) | CPT/HCPCS: 87324 ==

== ENCOUNTER 2022-01-29 10:53 | Outpatient (CLI) | payer OTHER, SELFPAY ==
[2022-01-29 13:27] VITALS: BMI 32.0
[2022-01-29] MEDS: SODIUM CHLORIDE 0.9% IV 1,000 ML 999 ML IV CONT (13:30)
[2022-01-29] MEDS: METOCLOPRAMIDE HCL INJ 10 MG/2 ML VIAL IV PUSH (14:11)
[2022-01-29] MEDS: DIVALPROEX SODIUM DR 250 MG TABEC 500 MG PO (14:11)
[2022-01-29] MEDS: DEXAMETHASONE SOD PHOS INJ 4 MG/ML VIAL IV PUSH (14:11)
--- NOTE | 2022-01-29 14:59 | PC.NURSE ---
Patient here for Migraine IV regimen. Reports has had H/A for 17 days. Education on meds given. All concerns answered. IV migraine regimen administered. SEE MAR. Tolerated well. Safe exit of hospital.
== END 2022-01-29 10:54 | disposition home or self-care (01) ==
PROVIDERS: PCP Nurse Practitioner Family; Visit Provider Nurse Practitioner Family
DX: G43.909 Migraine, unspecified, not intractable, without status migrainosus (principal)
CPT/HCPCS: 96360; 96361; 96374; 96375; A9270; J1100; J2765; J7030

== ENCOUNTER 2022-03-30 07:25 | Outpatient (CLI) | payer OTHER, SELFPAY ==
--- NOTE | ~2022-03-30 | MM_ITS ---
EXAMINATION: MM screening anselmo BI w ej HISTORY: Screening mammogram TECHNIQUE: Craniocaudal and mediolateral oblique 3-D tomosynthesis images were obtained and synthetic 2-D images were generated. CAD analysis was submitted and interpreted. COMPARISON: 03/29/2021 bilateral screening mammogram 03/29/2020 bilateral diagnostic mammography and complete breast ultrasound 03/28/2020 bilateral screening mammogram radiology Occasional BREAST PARENCHYMAL COMPOSITION: FINDINGS: Approximately 6.5 x 8.3 mm benign-appearing circumscribed mass is noted in the lower centra l left breast 6 cm deep to the nipple. There is no evidence of suspicious mass, calcification, or architectural distortion to suggest malig keith in either breast. There has been no suspicious interval change. IMPRESSION: 1. No mammographic evidence of malignancy. 2. Recommend routine screening mammography in one year. BI-RADS Category 2: Benign finding(s). Reviewed, dictated and finalized at location A.
== END 2022-03-30 07:26 | disposition home or self-care (01) ==
LOC: CHSIMG 07:26
PROVIDERS: PCP Nurse Practitioner Family; Visit Provider Student in an Organized Health Care Education/Training Program
DX: Z12.31 Encounter for screening mammogram for malignant neoplasm of breast (principal)
CPT/HCPCS: 77063; 77067

== ENCOUNTER 2022-04-09 13:55 | Outpatient (CLI) | payer OTHER, SELFPAY ==
[2022-04-09 15:10] LABS: SARS-CoV-2 RNA PCR Negative (Negative)
== END 2022-04-09 13:56 | disposition home or self-care (01) ==
LOC: CHSLAB 13:57
PROVIDERS: PCP Nurse Practitioner Family; Visit Provider Nurse Practitioner Family
DX: R09.81 Nasal congestion (principal)
CPT/HCPCS: C9803; U0003; U0005

== ENCOUNTER 2022-09-13 09:48 | Outpatient (CLI) | payer OTHER, SELFPAY ==
[2022-09-13 10:05] LABS: Basophils Absolute Auto 0.07 K/mm3 (0.00-0.10); Basophils Percent Auto 0.5 % (0.0-1.0); Eosinophils Absolute Auto 0.29 K/mm3 (0.02-0.50); Eosinophils Percent Auto 2.3 % (1.0-6.0); Hematocrit 40.3 % (35.0-49.0); Hemoglobin 13.2 g/dL (12.0-15.0); Immature Granulocyte Absolute 0.09 K/mm3 (0.00-0.00); Immature Granulocyte Percent A 0.7 % (0.0-0.0); Lymphocytes Absolute Auto 3.68 K/mm3 (1.10-4.50); Lymphocytes Percent Auto 28.8 % (18.0-42.0); Mean Corpuscular HGB Conc 32.8 g/dL (32.0-36.0); Mean Corpuscular Hemoglobin 30.2 pg (27.0-31.0); Mean Corpuscular Volume 92.2 fL (78.0-102.0); Mean Platelet Volume 11.6 fl (9.2-11.8); Monocytes Percent Auto 5.5 % (2.0-11.0); Neutrophils Absolute Auto 7.9 K/mm3 (1.7-7.2); Neutrophils Percent Auto 62.2 % (50.0-70.0); Platelet Count Result 293 K/mm3 (150-420); Red Blood Count 4.37 M/mm3 (4.20-5.40); Red Cell Distribution Width 13.1 % (11.6-14.4); White Blood Count 12.8 K/mm3 (4.8-10.8)
[2022-09-13 10:59] LABS: Alanine Aminotransferase 21 U/L (14-59); Albumin Level 3.9 g/dL (3.4-5.0); Alkaline Phosphatase 82 U/L (46-116); Anion Gap 9 mmol/L (8-16); Aspartate Amino Transferase 16 U/L (15-37); Bilirubin,Total 0.3 mg/dL (0.00-1.00); Blood Urea Nitrogen 10 mg/dL (7-18); Calcium 8.9 mg/dL (8.5-10.1); Carbon Dioxide 25 mmol/L (21-32); Chloride 107 mmol/L (98-108); Cholesterol 228 mg/dL (0-200); Estimated Glomerular Filt Rate > 60; Free T4 Free Thyroxine 0.88 ng/dL (0.76-1.46); Glucose 101 mg/dL (70-99); HDL Direct 47 mg/dL (40-60); LDL Cholesterol Calculated 151 mg/dL (<130); Osmolality Calculated 291 mOsm/kg (285-295); Potassium 4.4 mmol/L (3.5-5.1); Sodium 141 mmol/L (136-145); Thyroid Stimulating Hormone 1.45 uIU/mL (0.36-3.74); Total Protein 7.2 g/dL (6.4-8.2); Triglycerides 151 mg/dL (0-150)
[2022-09-17 20:06] LABS: Vitamin D 25 Hydroxy 13 ng/mL (30-100)
== END 2022-09-13 09:49 | disposition home or self-care (01) ==
PROVIDERS: PCP Nurse Practitioner Family; Visit Provider Nurse Practitioner Family
DX: I10 Essential (primary) hypertension (principal); R53.83 Other fatigue; Z79.899 Other long term (current) drug therapy
CPT/HCPCS: 36415; 80053; 80061; 82306; 84439; 84443; 85025

== ENCOUNTER 2023-02-01 01:32 | Day surgery (SDC) | payer OTHER, SELFPAY ==
--- NOTE | 2023-01-31 13:02 | WPDANESEPPF ---
Anes - Initial Pre Proc Eval Procedure: Operation Date: 02/01/23 07:30 Proposed Procedures p Screening Colonoscopy - Murray French MD Date/Time: 01/31/23 13:02 Surgeon: Murray French MD Pre Op Diagnosis: family hx colon ca Patient Data Age: 48 Gender: F Height: 1.65 m Weight: 82 kg Allergies Allergy/AdvReac Type Severity Reaction Status Date / Time No Known Allergies Allergy Unknown Verified 02/01/23 06:24 Home Medications Medication Instructions Recorded Confirmed Type lactobacillus combination no.8 3 3,000 mmu cells PO DAILY 10/05/20 01/22/23 History billion cell capsule (Adult Probiotic) multivitamin 1 tablet PO DAILY 10/05/20 01/22/23 History sumatriptan succinate 25 mg tablet See Rx Instructions PO .COMPLEX 01/25/22 01/22/23 Rx (Imitrex) #10 tabs azelastine 137 mcg (0.1 %) nasal 1 spray intranasal Q12H #30 mL 05/17/22 01/22/23 Rx spray aerosol omeprazole 20 mg capsule,delayed See Rx Instructions .Route 09/14/22 01/22/23 Rx release .COMPLEX #180 caps propranolol 40 mg tablet See Rx Instructions .Route 09/18/22 01/22/23 Rx .COMPLEX #180 tabs fluconazole 150 mg tablet 150 mg PO ONCE #2 tabs 09/28/22 01/22/23 Rx (Diflucan) cholecalciferol (vitamin D3) 50 See Rx Instructions .Route 12/05/22 01/22/23 Rx mcg (2,000 unit) capsule (Vitamin .COMPLEX #90 caps D3) ergocalciferol (vitamin D2) 1,250 See Rx Instructions .Route 12/05/22 01/22/23 Rx mcg (50,000 unit) capsule .COMPLEX #12 caps metformin 500 mg tablet,extended See Rx Instructions .Route 01/22/23 01/22/23 Rx release 24 hr .COMPLEX #60 tabs Patient hx anesthesia problems: none Family hx anesthesia problems: none Results Review: All pre-operative results and documents have been reviewed as part of the pre-operative evaluation. [facility] Past Medical History Medical History (Updated 01/31/23 @ 13:02 by Phil J. Luchtefeld, DO) Acute sinusitis BMI greater than 30 Breast pain, right Fatigue GERD (gastroesophageal reflux disease) Hypertension Maxillary sinusitis Ovarian cyst Vaginal delivery x 2 Surgical History Surgical History H/O bilateral salpingectomy H/O total hysterectomy History of bilateral tubal ligation History of elbow surgery History of endometrial ablation History of tonsillectomy Family History Family History Grandparent Diabetes mellitus Cerebrovascular accident Carcinoma of colon Mother Hypertension Family history of malignant neoplasm of breast in first degree relative, Onset Age: 49 Social History Social History Smoking status: Never smoker Second hand tobacco smoke exposure: No Alcohol intake: current Drinks per week: 4 Substance use: never Substance use type: does not use Living arrangements: with family Occupation/Education: occupation Gender identity (if verbalized by the patient): Female Sexual Orientation (if Verbalized by the Patient): Straight or Heterosexual Spiritual care concerns: No Anes - Eval Final PreProcedure Day of Procedure 01/31/23 13:02 Patient weight: obese Heart: regular rate and rhythm Lungs: clear to auscultation Airway: Mallampati scale class II Neurological: alert and oriented Last oral intake: >/= 8 hours ASA classification: III Emergent: no Anesthetic plan: proceed Anesthesia type and monitoring: general GIVS and standard monitoring Results Review: All pre-operative results and documents have been reviewed as part of the pre-operative evaluation. Informed Consent: The patient's anesthetic plan and its attendant risks and benefits were discussed with the patient/family/POA. Questions were solicited and answers provided to the satisfaction of the patient/family/POA.
[2023-02-01 06:25] VITALS: BP 144/92; PULSE 80; RESP 17; TEMP 36.3; O2SAT 99
[2023-02-01] MEDS: LACTATED RINGERS 1,000 ML 150 ML IV CONT (06:42)
--- NOTE | 2023-02-01 07:23 | PM.HPGS ---
History of Present Illness History of Present Illness Consent: Risks, benefits, and alternatives have been discussed and questions answered. Patient agrees to proceed with procedure. Chief complaint: family hx colon ca Narrative: Emeli Benavidez is a 48 year old female here for first screening colonoscopy Review of Systems Constitutional: Constitutional: Denies headache(s) and Denies weakness Eyes: Eyes: Denies blurry vision ENT: Reports Normal hearing present, Denies headache(s) and Denies neck pain Cardiovascular: Cardiovascular: Denies chest pain and Denies dyspnea Respiratory: Respiratory: Denies dyspnea Gastrointestinal: Gastrointestinal: Reports no additional gastrointestinal complaints Genitourinary: Genitourinary: Denies dysuria Musculoskeletal: Musculoskeletal: Denies neck pain Integumentary/Breasts: Skin/Breast: Denies dry skin Neurologic: Reports Normal hearing present, Denies headache(s) and Denies weakness Psychiatric: Psychiatric: Denies anxiety Endocrine: Endocrine: Denies change in body appearance Hematologic/Lymphatic: Hematologic/Lymphatic: Denies easy bleeding Allergic/Immunologic: Allergic/Immunologic: Denies urticaria PMFSH Past Medical History Medical History (Updated 02/01/23 @ 07:24 by Murray French MD) Acute sinusitis BMI greater than 30 Breast pain, right Colon cancer screening Fatigue GERD (gastroesophageal reflux disease) Hypertension Maxillary sinusitis Ovarian cyst Vaginal delivery x 2 Surgical History Surgical History H/O bilateral salpingectomy H/O total hysterectomy History of bilateral tubal ligation History of elbow surgery History of endometrial ablation History of tonsillectomy Family History Family History Grandparent Diabetes mellitus Cerebrovascular accident Carcinoma of colon Mother Hypertension Family history of malignant neoplasm of breast in first degree relative, Onset Age: 49 Social History Social History Smoking status: Never smoker Second hand tobacco smoke exposure: No Alcohol intake: current Drinks per week: 4 Substance use: never Substance use type: does not use Living arrangements: with family Occupation/Education: occupation Gender identity (if verbalized by the patient): Female Sexual Orientation (if Verbalized by the Patient): Straight or Heterosexual Spiritual care concerns: No Meds Home Medications and Allergies Home Medications Medication Instructions Recorded Confirmed Type lactobacillus combination no.8 3 3,000 mmu cells PO DAILY 10/05/20 01/22/23 History billion cell capsule (Adult Probiotic) multivitamin 1 tablet PO DAILY 10/05/20 01/22/23 History sumatriptan succinate 25 mg tablet See Rx Instructions PO .COMPLEX 01/25/22 01/22/23 Rx (Imitrex) #10 tabs azelastine 137 mcg (0.1 %) nasal 1 spray intranasal Q12H #30 mL 05/17/22 01/22/23 Rx spray aerosol omeprazole 20 mg capsule,delayed See Rx Instructions .Route 09/14/22 01/22/23 Rx release .COMPLEX #180 caps propranolol 40 mg tablet See Rx Instructions .Route 09/18/22 01/22/23 Rx .COMPLEX #180 tabs fluconazole 150 mg tablet 150 mg PO ONCE #2 tabs 09/28/22 01/22/23 Rx (Diflucan) cholecalciferol (vitamin D3) 50 See Rx Instructions .Route 12/05/22 01/22/23 Rx mcg (2,000 unit) capsule (Vitamin .COMPLEX #90 caps D3) ergocalciferol (vitamin D2) 1,250 See Rx Instructions .Route 12/05/22 01/22/23 Rx mcg (50,000 unit) capsule .COMPLEX #12 caps metformin 500 mg tablet,extended See Rx Instructions .Route 01/22/23 01/22/23 Rx release 24 hr .COMPLEX #60 tabs Allergies Allergy/AdvReac Type Severity Reaction Status Date / Time No Known Allergies Allergy Unknown Verified 02/01/23 06:24 Vital Signs Vital Signs - 24 hr
[2023-02-01 07:55] VITALS: BP 94/60; PULSE 80; RESP 16; O2SAT 94
[2023-02-01 08:05] VITALS: BP 111/72; PULSE 87; RESP 19; O2SAT 96
[2023-02-01 08:15] VITALS: BP 112/73; PULSE 68; RESP 22; O2SAT 98
== END 2023-02-01 08:18 | disposition home or self-care (01) ==
PROVIDERS: PCP Nurse Practitioner Family; Visit Provider Internal Medicine Gastroenterology
PROC: 0DJD8ZZ Inspection of Lower Intestinal Tract, Via Natural or Artificial Opening Endoscopic (ICD-10-PCS; CPT 45378; principal; 2023-02-01 07:30)
DX: Z12.11 Encounter for screening for malignant neoplasm of colon (principal); D12.3 Benign neoplasm of transverse colon; D12.5 Benign neoplasm of sigmoid colon; D12.8 Benign neoplasm of rectum; K57.30 Diverticulosis of large intestine without perforation or abscess without bleeding; K64.8 Other hemorrhoids; Z80.0 Family history of malignant neoplasm of digestive organs; K21.9 Gastro-esophageal reflux disease without esophagitis; I10 Essential (primary) hypertension
CPT/HCPCS: 45385; 88305; J2405; J2704; J3010; J7120

== ENCOUNTER 2023-04-08 08:40 | Outpatient (CLI) | payer OTHER, SELFPAY ==
--- NOTE | ~2023-04-08 | MM_ITS ---
EXAMINATION: MM screening anselmo BI w ej HISTORY: Screening mammogram, family history of breast cancer in her mother. TECHNIQUE: Craniocaudal and mediolateral oblique 3-D tomosynthesis images were obtained and synthetic 2-D images were generated. CAD analysis was submitted and interpreted. COMPARISON: 03/30/2022, 03/29/2021, 03/29/2020, 03/28/2020 BREAST PARENCHYMAL COMPOSITION: There are scattered areas of fibroglandular density. FINDINGS: RIGHT BREAST: No suspicious mass, calcification, or architectural distortion are identified to sugges t malignancy. There has been no suspicious interval change. LEFT BREAST: There is an 11 mm mass in the middle third of the slightly lower breast at the 6:00 loca tion, 6 cm from the nipple. IMPRESSION: 1. Left breast mass. 2. Additional mammographic views and possible breast ultrasound are recommended. BI-RADS Category 0: Incomplete: Needs additional imaging evaluation. Reviewed, dictated and finalized at location A. IMPRESSION: 1. Left breast mass. 2. Additional mammographic views and possible breast ultrasound are recommended . BI-RADS Category 0: Incomplete: Needs additional imaging evaluation.
== END 2023-04-08 08:41 | disposition home or self-care (01) ==
LOC: CHSIMG 08:41
PROVIDERS: PCP Nurse Practitioner Family; Visit Provider Obstetrics & Gynecology
DX: Z12.31 Encounter for screening mammogram for malignant neoplasm of breast (principal); R92.8 Other abnormal and inconclusive findings on diagnostic imaging of breast
CPT/HCPCS: 77063; 77067

== ENCOUNTER 2023-04-10 07:09 | Outpatient (CLI) | payer OTHER, SELFPAY ==
--- NOTE | ~2023-04-10 | MMUS_ITS ---
EXAMINATION: MM diagnostic anselmo LT w ej, US breast LT limited HISTORY: Left breast mass on screening mammogram TECHNIQUE: Additional 3-D tomosynthesis images of the left breast were performed and synthetic 2-D im ages were generated. CAD analysis was submitted and interpreted. High resolution limited left breast ultrasound was performed. COMPARISON: 04/08/2023, 03/30/2022, 03/29/2021 FINDINGS: MAMMOGRAPHIC FINDINGS: There is a 12 mm x 10 mm oval, circumscribed, equal density mass in the middle third of the lower angelica ast at the 6:00 location, 7 cm from the nipple. No suspicious architectural distortion or calcificati on are identified. ULTRASOUND: There is a 12 mm x 7 mm oval, circumscribed, parallel, hypoechoic mass with no posterior features or internal vascularity at the 6:00 location projecting near the nipple and corresponding to the mammogr aphic finding in question. IMPRESSION: 1. Indeterminate left breast mass. 2. Ultrasound-guided biopsy is recommended. BI-RADS category 4, suspicious findings. Reviewed, dictated and finalized at location A. IMPRESSION: 1. Indeterminate left breast mass. 2. Ultrasound-guided biopsy is recommended. BI-RADS category 4, suspicious findings.
== END 2023-04-10 07:10 | disposition home or self-care (01) ==
PROVIDERS: PCP Nurse Practitioner Family; Visit Provider Obstetrics & Gynecology
DX: R92.8 Other abnormal and inconclusive findings on diagnostic imaging of breast (principal)
CPT/HCPCS: 76642; 77061; 77065; G0279

== ENCOUNTER 2023-04-10 11:33 | Outpatient (CLI) | payer OTHER, SELFPAY ==
--- NOTE | ~2023-04-10 | MMUS_ITS ---
EXAMINATION: US breast biopsy LT w image, MM post biopsy invasive LT DATE: 04/10/2023 12:53 (accession [id number]), 04/10/2023 12:50 (accession [id number]) INDICATION: Indeterminate mass at the 6:00 location of the left breast. Ultrasound-guided core biopsy is requested to evaluate for malignancy. TECHNIQUE AND FINDINGS: The risks and potential benefits of the procedure were discussed with the patient including bleeding and infection. A time out was performed. The skin of the left breast was prepared and draped in usual sterile fashion. 1% lidocaine was used for superficial anesthesia. 1% lidocaine with epinephrine was used for deep anesthesia. A vacuum-assisted biopsy needle was advanced through to the outer edge of the region of interest from an inferolateral approach utilizing sonographic guidance. A total of six tissue core samples were ob tained through the lesion. A tissue marker clip was then placed at the biopsy site. Hemostasis was ac hieved. A sterile bandage was applied. The patient tolerated procedure well and there was no evidence of immediate complication. The patient was given verbal instructions to return to the Emergency Department in the event of severe breast pa in or rapid breast enlargement. A two view left breast mammogram was obtained to document tissue jamal er clip placement. IMPRESSION: 1. Successful ultrasound-guided vacuum-assisted biopsy of left breast mass with tissue marker placeme nt. Reviewed, dictated and finalized at location A. IMPRESSION: 1. Successful ultrasound-guided vacuum-assisted biopsy of left breast mass with tissue marker placement.
== END 2023-04-10 11:34 | disposition home or self-care (01) ==
PROVIDERS: PCP Nurse Practitioner Family; Visit Provider Registered Nurse
DX: R92.8 Other abnormal and inconclusive findings on diagnostic imaging of breast (principal); D24.2 Benign neoplasm of left breast
CPT/HCPCS: 19083; 88305; A4648

== ENCOUNTER 2023-08-13 09:59 | Outpatient (CLI) | payer OTHER, SELFPAY ==
--- NOTE | ~2023-08-13 | XR_ITS ---
EXAM: XR wrist LT min 3V DATE: 08/13/2023 10:13 HISTORY: M25.532 - Pain in left wrist decreased range of motion NKI . COMPARISON: None available. FINDINGS: Normal mineralization. No fracture or dislocation. No lytic or blastic lesion. Mild joint space narrowing at the triscaphe joint. Degenerative subchondral cyst formation noted in the lateral view, possibly within the lunate. No erosion or periosteal change. Soft tissues within normal limits. 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 Reviewed, dictated and finalized at location K. MIC WORKER
== END 2023-08-13 10:00 | disposition home or self-care (01) ==
LOC: CHSIMG 10:02
PROVIDERS: PCP Nurse Practitioner Family; Visit Provider Nurse Practitioner Family
DX: M25.532 Pain in left wrist (principal); M19.032 Primary osteoarthritis, left wrist
CPT/HCPCS: 73110

== ENCOUNTER 2023-10-14 13:50 | Outpatient (CLI) | payer OTHER, SELFPAY ==
--- NOTE | ~2023-10-14 | XR_ITS ---
EXAM: XR knee LT 3V DATE: 10/14/2023 14:13 HISTORY: pt fell Saturday, swelling, LT knee pain . COMPARISON: None available. FINDINGS: Normal mineralization. No fracture or dislocation. No lytic or blastic lesion. Tricompartm ental left knee osteoarthritis, moderate in the patellofemoral and medial compartments. No erosion or periosteal change. Prepatellar soft tissue stranding/swelling. IMPRESSION: No acute osseous finding in the left knee. Reviewed, dictated and finalized at location K. ERMAKER WELDER
== END 2023-10-14 13:51 | disposition home or self-care (01) ==
LOC: CHSIMG 13:52
PROVIDERS: PCP Nurse Practitioner Family; Visit Provider Nurse Practitioner Family
DX: M25.462 Effusion, left knee (principal)
CPT/HCPCS: 73562

== ENCOUNTER 2023-10-19 07:25 | Outpatient (CLI) | payer OTHER, SELFPAY ==
--- NOTE | ~2023-10-19 | MR_ITS ---
EXAMINATION: MR knee LT wo con DATE: 10/19/2023 12:01 INDICATION: Pain in left knee. TECHNIQUE: Magnetic resonance imaging (MRI) of the left knee was performed without intravenous contra st. Sequences included axial PD-weighted FS FSE, coronal PD-weighted FSE and PD-weighted FS FSE, sagi ttal PD-weighted FSE, and sagittal T2-weighted FS FSE. COMPARISON: Left knee radiographs 10/14/2023 FINDINGS: Medial compartment: Medial meniscus is normal. There is shallow partial-thickness cartilage loss of femoral condyle, wors t at the central and medial articular surface. There is cartilage surface irregularity of tibial cond yle. Osteophytes are noted. Lateral compartment: Lateral meniscus is normal. Lateral compartment cartilage is normal. Osteophytes are noted. Patellofemoral compartment: There is full-thickness cartilage loss of patellar medial ridge, medial facet, and lateral facet with moderate subchondral edema-like marrow signal intensity. There is shallow partial-thickness cartilag e loss of trochlea. Osteophytes are noted. Ligaments and tendons: The anterior and posterior cruciate ligaments are normal. There are changes of prior sprains of media l collateral ligament and fibular collateral ligament characterized by thickening and increased signa l intensity proximally. There is mild patellar tendinopathy. Fluid: There is a small knee joint effusion. There is severe prepatellar and superficial infrapatellar bursi tis. There is a 9 mm ganglion cyst in Hoffa's fat pad. IMPRESSION: 1. Severe chondrosis of patellofemoral compartment and mild chondrosis of medial compartment. 2. Small knee joint effusion. 3. Severe prepatellar and superficial infrapatellar bursitis. Reviewed, dictated and finalized at location E. RA OPERATOR IMPRESSION: 1. Severe chondrosis of patellofemoral compartment and mild chondrosis of media l compartment. 2. Small knee joint effusion. 3. Severe prepatellar and superficial infrapatellar bursitis.
== END 2023-10-19 07:26 | disposition home or self-care (01) ==
PROVIDERS: PCP Nurse Practitioner Family; Visit Provider Nurse Practitioner Family
DX: M25.562 Pain in left knee (principal); M22.2X2 Patellofemoral disorders, left knee; M25.462 Effusion, left knee; M71.562 Other bursitis, not elsewhere classified, left knee
CPT/HCPCS: 73721

== ENCOUNTER 2023-10-21 15:38 | Outpatient (RCR) | payer OTHER, SELFPAY ==
--- NOTE | 2023-10-21 16:38 | PTOPEVAL1 ---
Assessment and note entered by Bruce Quintero Evaluation Information Assessment Status Evaluation Diagnosis leftt knee pain Onset 10/11/23 Subjective Information Pt. reports she was in her parents driveway on 10/10. She reports she was running after an object rolling down the driveway and fell onto the right knee. She reports that since the fall she has a dull, nonstop ache in the right knee. She reports that she had an MRI a couple days ago. She states that pain will wake her on occasion. She reports that she notices pain getting up from a seated position. She reports that stairs have become painful since her fall, and has to go up and down step to do laundry. She reports that she does not perform any intense exercise. She states that her goal is to decrease her pain with activity. Reported Pain Level Pain Score 6: Self Report Assessment PT Clinical Summary Pt. is a 48 year old female who enters the clinic with left knee pain. She presents with impaired ROM, impaired l.e. strength, impaired gait and pain. continued skilled PT is indicated in order to improve these areas to allow for improved comfort with IADL performance. Plan of Care Interventions Electrical Stimulation,Gait Training,Hot Pack/Cold Pack,Manual Therapy,Neuro Re-education,Patient/ Caregiver Educati,Therapeutic Activities, Therapeutic Exercise PT Services Indicated Yes Treatment Frequency and 2x/week x 8 visits Duration These treatments will address the objective and functional deficits as defined above. The patient will be advanced safely and appropriately in order for the patient to progress towards his/her prior level of function. Additional exercises will be introduced and as well as a comprehensive home exercise program upon discharge, if needed, ?to ensure carryover of functional gains achieved in the clinic. This treatment plan has been reviewed and agreement upon by the patient.
--- NOTE | 2023-10-21 16:40 | OPREHPOC ---
Outpatient Therapy Plan of Care This is a Multidisciplinary Plan of Care that may contain components documented by all disciplines (PT, OT, and ST.) PT Problem 1 PT Problem #1 Knowledge Deficit PT Goal 1 Goal Independent with a HEP addressing strength and mobility judaism at the left knee. Target Visit 2 PT Problem 2 PT Problem #2 Pain PT Goal 1 Goal Pt. will reduce pain to 2/10 at worst with prolonged standing and stair navigation Target Visit 8 PT Problem 3 PT Problem #3 Impaired Range of Motion PT Goal 1 Goal Pt. will achieve 0-128 degrees left knee active ROM to improve functional squatting ability. Target Visit 8 PT Problem 4 PT Problem #4 Impaired Functional Mobil PT Goal 1 Goal Pt. will present with less than 30% limitation on the LEFS indicating overall improvement in function Target Visit 8
--- NOTE | 2023-11-01 13:25 | PCPTNOTE ---
pt called and cancelled no reason given
--- NOTE | 2023-11-11 15:43 | PCPTNOTE ---
Patient cancelled session today. Patient reports she forgot about her appointment.
== END 2023-11-13 13:32 | disposition still patient (30) ==
LOC: CHSPT 15:38
PROVIDERS: Visit Provider Nurse Practitioner Family
DX: M25.562 Pain in left knee (principal)
CPT/HCPCS: 97014; 97110; 97112; 97161; 97530; G0283

== ENCOUNTER 2023-11-21 08:35 | Outpatient (CLI) | payer OTHER, SELFPAY ==
[2023-11-21 09:21] LABS: Strep Group A RT-PCR NOT DETECTED (Negative)
[2023-11-21 09:31] LABS: SARS-CoV-2 RNA PCR Positive (Negative)
[2023-11-21 09:43] LABS: Influenza A QL RT-PCR Negative (Negative); Influenza B QL RT-PCR Negative (Negative); RSV RNA, RT-PCR Negative (Negative)
== END 2023-11-21 08:36 | disposition home or self-care (01) ==
LOC: CHSLAB 08:38
PROVIDERS: PCP Nurse Practitioner Family; Visit Provider Family Medicine
DX: U07.1 COVID-19 (principal); R05.9 Cough, unspecified
CPT/HCPCS: 87637; 87651

== ENCOUNTER 2024-01-24 13:50 | Outpatient (CLI) | payer OTHER, SELFPAY ==
[2024-01-24 14:20] VITALS: BMI 30.4
[2024-01-24] MEDS: SODIUM CHLORIDE 0.9% IV 1,000 ML 999 ML IVPB (14:27)
[2024-01-24] MEDS: diphenhydrAMINE HCl INJ 50 MG/ML VIAL IV PUSH (14:30)
[2024-01-24] MEDS: PROCHLORPERAZINE EDISYLATE 10 MG/2 ML VIAL IV PUSH (14:30)
[2024-01-24 14:36] VITALS: BP 143/94; PULSE 68; RESP 14; TEMP 36.4; O2SAT 98
[2024-01-24 15:30] VITALS: BP 125/92; PULSE 78; RESP 18; O2SAT 96
== END 2024-01-24 13:51 | disposition home or self-care (01) ==
PROVIDERS: PCP Family Medicine; Visit Provider Family Medicine
DX: G43.909 Migraine, unspecified, not intractable, without status migrainosus (principal)
CPT/HCPCS: 96360; 96375; J0780; J1200; J7030

== ENCOUNTER 2024-02-14 14:54 | Outpatient (CLI) | payer OTHER, SELFPAY ==
--- NOTE | ~2024-02-14 | XR_ITS ---
EXAMINATION: XR_KNEE1-2VRT_CR DATE: 02/14/2024 15:13 INDICATION: Right leg pain. Fall. TECHNIQUE: 2 views of right knee were obtained. COMPARISON: None. FINDINGS: Bone alignment is normal. No fracture. There is mild tricompartmental osteoarthritis. No kn ee joint effusion. IMPRESSION: 1. Mild right knee osteoarthritis. Reviewed, dictated and finalized at location A.
--- NOTE | ~2024-02-14 | XR_ITS ---
EXAMINATION: XR hip RT min 2V DATE: 02/14/2024 15:13 INDICATION: Right hip pain. Fall. TECHNIQUE: 2 views of right hip were obtained. COMPARISON: Right hip radiograph 01/25/2017 FINDINGS: Bone alignment is normal. No fracture. There is mild right hip osteoarthritis. IMPRESSION: 1. Mild right hip osteoarthritis. Reviewed, dictated and finalized at location A.
--- NOTE | ~2024-02-14 | XR_ITS ---
3 VIEWS LUMBAR SPINE Ordering provider: Fernando Dillard APRN History: . FALL X1DAY AGO,RT LEG PAIN RADIATES FROM BACK,TOES TINGLING . Comparison: None. FINDINGS: VERTEBRAL BODIES:Minimal anterolisthesis at the level of L4-L5. No visible fracture or subluxation. DISK SPACES: Normal. Facet joint disease at the level of L4-L5 and L5-S1. SOFT TISSUES: Normal. IMPRESSION: No acute osseous abnormality lumbar spine. Reviewed, dictated and finalized at location A.
== END 2024-02-14 14:55 | disposition home or self-care (01) ==
LOC: CHSIMG 14:55
PROVIDERS: PCP Nurse Practitioner Family; Visit Provider Nurse Practitioner Family
DX: S79.911A Unspecified injury of right hip, initial encounter (principal); M17.11 Unilateral primary osteoarthritis, right knee; M16.11 Unilateral primary osteoarthritis, right hip
CPT/HCPCS: 72100; 73502; 73560

== ENCOUNTER 2024-03-31 16:00 | Outpatient (RCR) | payer OTHER, SELFPAY ==
--- NOTE | 2024-03-02 17:08 | PCPTNOTE ---
Patient did not show up for scheduled appointment this date. -Alicia Ladd, PT
--- NOTE | 2024-03-31 16:57 | PTOPEVAL1 ---
Assessment and note entered by Magi Reyna DPT Evaluation Information Assessment Status Re-evaluation Diagnosis leftt knee pain, low back pain ICD-10 Condition Codes (PT) Pain in left knee M25.562 Other ICD-10 Condition Codes ( M19.90, M43.10 PT) Onset 02/17/24; 10/11/23 Subjective Information Emeli Benavidez reports that on the 12 of February she fell forward holding a band uniform and had back pack of water. she reports pain was tolerable following but about 3 weeks ago she went on a road trip and since then pain has been unbearable . She reports difficulty with sitting for prolonged periods, sleeping, and navigating stairs . She reports getting up out of her chair at work every 30 minutes increases pain. She reports she has been taking ibuprofen to decrease pain. She does not have a PCP follow up at this time. Reported Pain Level Pain Score 6: Self Report Assessment PT Clinical Summary Emeli Benavidez presents with low back pain. She has difficulty with sleeping, sitting at her desk, navigating stairs and ambulating prolonged distances. She objectively demonstrates decreased core strength, decrease lumbar ROM, and decreased tenderness at the R glute. She will benefit from skilled PT to address these limitations and return to PLOF. Plan of Care Interventions Electrical Stimulation,Hot Pack/Cold Pack,Manual Therapy,Neuro Re-education,Patient/Caregiver Educati,Therapeutic Activities,Therapeutic Exercise PT Services Indicated Yes Treatment Frequency and 2 times a week for 8 visits Duration These treatments will address the objective and functional deficits as defined above. The patient will be advanced safely and appropriately in order for the patient to progress towards his/her prior level of function. Additional exercises will be introduced and as well as a comprehensive home exercise program upon discharge, if needed, ?to ensure carryover of functional gains achieved in the clinic. This treatment plan has been reviewed and agreement upon by the patient.
--- NOTE | 2024-04-14 15:46 | PCPTNOTE ---
Patient called & cancelled scheduled appointment this date.
--- NOTE | 2024-05-04 15:37 | PCPTNOTE ---
Cancelled session due to working late.
== END 2024-05-31 23:59 | disposition home or self-care (01) ==
LOC: CHSPT 16:00
PROVIDERS: Visit Provider Nurse Practitioner Family
DX: M25.562 Pain in left knee (principal)
CPT/HCPCS: 97110; 97530; 97750

== ENCOUNTER 2024-04-14 07:05 | Outpatient (CLI) | payer OTHER, SELFPAY ==
--- NOTE | ~2024-04-14 | MM_ITS ---
EXAMINATION: MM screening anselmo BI w ej HISTORY: Screening TECHNIQUE: Craniocaudal and mediolateral oblique 3-D tomosynthesis images were obtained and synthetic 2-D images were generated. CAD analysis was submitted and interpreted. COMPARISON: Comparison to multiple prior studies sequentially, with oldest reviewed study dated 03/29. BREAST PARENCHYMAL COMPOSITION: Not dense: There are scattered areas of fibroglandular density. FINDINGS: The left breast is stable without evidence for malignancy. There is a new mass in the upper inner quadrant of the right breast anteriorly. There are no suspicious calcifications or architectur al distortion. There is a stable left breast mass in the lower inner quadrant, middle third. IMPRESSION: 1. New right breast mass upper inner quadrant. 2. Additional mammographic views and possible breast ultrasound are recommended. BI-RADS Category 0: Incomplete: Needs additional imaging evaluation. Reviewed, dictated and finalized at location B. IMPRESSION: 1. New right breast mass upper inner quadrant. 2. Additional mammographic views and possible breast ultrasound are recommended . BI-RADS Category 0: Incomplete: Needs additional imaging evaluation.
--- NOTE | ~2024-04-14 | MM_ITS ---
EXAMINATION: MM diagnostic anselmo RT w ej HISTORY: Follow-up right breast asymmetry TECHNIQUE: Additional 3-D tomosynthesis images of the right breast were performed and synthetic 2-D i mages were generated. CAD analysis was submitted and interpreted. COMPARISON: Comparison to multiple prior studies sequentially, with oldest reviewed study dated 03/29. BREAST PARENCHYMAL COMPOSITION: Not dense: There are scattered areas of fibroglandular density. FINDINGS: There is nodular fibroglandular content of the right breast. No discrete mass or architectu ral distortion. No suspicious calcifications. IMPRESSION: 1. Nodular asymmetries throughout the right breast. 2. Complete right breast ultrasound recommended. BI-RADS Category 0: Incomplete: Needs additional imaging evaluation. Reviewed, dictated and finalized at location B.
--- NOTE | ~2024-04-14 | US_ITS ---
US breast RT complete 04/14/2024 11:08 Indication: Follow-up right breast asymmetries Procedure: High-resolution complete right breast ultrasound including all 4 quadrants in the subareol ar location Comparison: Mammogram dated 04/14/2024 Findings: There is an irregular shaped hypoechoic mass with dense posterior shadowing at 12:00 near t he nipple. There is an adjacent hypoechoic mass with oval configuration measuring proximally 7 mm. Impression: 1: Irregular shaped hypoechoic mass with posterior shadowing at 2:00 near the nipple with adjacent 7 mm solid mass. BI-RADS CATEGORY 4-SUSPICIOUS ABNORMALITY RECOMMENDATION: Ultrasound-guided right breast biopsy of irregular shaped shadowing mass and oval charlotte id mass located at 2:00 near the nipple are recommended. Reviewed, dictated and finalized at location B. Impression: 1: Irregular shaped hypoechoic mass with posterior shadowing at 2:00 near the n ipple with adjacent 7 mm solid mass. BI-RADS CATEGORY 4-SUSPICIOUS ABNORMALITY RECOMMENDATION: Ultrasound-guided right breast biopsy of irregular shaped shado wing mass and oval solid mass located at 2:00 near the nipple are recommended.
== END 2024-04-14 07:06 | disposition home or self-care (01) ==
PROVIDERS: PCP Nurse Practitioner Family; Visit Provider Obstetrics & Gynecology
DX: R92.8 Other abnormal and inconclusive findings on diagnostic imaging of breast (principal)
CPT/HCPCS: 76641; 77061; 77063; 77065; 77067; G0279

== ENCOUNTER 2024-04-17 07:30 | Outpatient (CLI) | payer OTHER, SELFPAY ==
--- NOTE | ~2024-04-17 | MMUS_ITS ---
MM post biopsy diagnostic RT, US breast biopsy RT w image EXAMINATION: US GUIDED NEEDLE BIOPSY WITH VACUUM ASSISTANCE DATE: 04/17/2024 09:46 CDT INDICATION: Right breast mass seen on prior examination. Ultrasound-guided core biopsy is requested to evaluate for malignancy. BREAST PARENCHYMAL COMPOSITION: Not dense: There are scattered areas of fibroglandular density. TECHNIQUE AND FINDINGS: The risks and potential benefits of the procedure were discussed with the patient, and written inform ed consent was obtained. After sterile preparation of the right breast, 1% lidocaine was utilized fo r local anesthesia. 1% lidocaine with epinephrine was used for deep anesthesia. A 10G vacuum-assisted biopsy gun needle was advanced through to the outer edge of the region of inter est from a superior approach utilizing sonographic guidance. A total of 4 tissue core samples were o btained through the lesion. An Inrad tissue marker clip was then placed at the biopsy site. Hemostas is was achieved. The patient tolerated procedure well and there was no evidence of immediate complication. The patien t was given verbal instructions partly is from the department. Right breast mammograms to document t issue marker clip placement. The tissue samples were submitted to surgical pathology for histologic a nalysis. IMPRESSION: 1. Successful ultrasound-guided vacuum-assisted biopsy of right breast mass with post procedure mamm ogram for marker placement. Please refer to pathology report for histologic analysis. Reviewed, dictated and finalized at location B. IMPRESSION: 1. Successful ultrasound-guided vacuum-assisted biopsy of right breast mass wi th post procedure mammogram for marker placement. Please refer to pathology rep ort for histologic analysis.
== END 2024-04-17 07:31 | disposition home or self-care (01) ==
PROVIDERS: PCP Nurse Practitioner Family; Visit Provider Obstetrics & Gynecology
DX: R92.8 Other abnormal and inconclusive findings on diagnostic imaging of breast (principal)
CPT/HCPCS: 19083; 77065; 88305; A4648

== ENCOUNTER 2024-10-20 15:31 | Outpatient (CLI) | payer OTHER, SELFPAY ==
--- NOTE | ~2024-10-20 | XR_ITS ---
EXAMINATION: XR elbow LT min 3V DATE: 10/20/2024 15:59 INDICATION: Left elbow pain. TECHNIQUE: 3 views of left femoral were obtained. COMPARISON: None. FINDINGS: Bone alignment is normal. No acute fracture. There are 2 screws in lateral humeral condyle. There is severe osteoarthritis of the elbow joint and moderate osteoarthritis of proximal radioulnar joint. There is an elbow joint effusion with loose body. IMPRESSION: 1. Severe elbow joint osteoarthritis. 2. Elbow joint effusion with loose body. Reviewed, dictated and finalized at location B.
--- NOTE | ~2024-10-20 | XR_ITS ---
EXAMINATION: XR forearm LT 2V DATE: 10/20/2024 15:59 INDICATION: Left forearm pain. TECHNIQUE: 2 views of left forearm were obtained. COMPARISON: None. FINDINGS: Alignment is normal. No acute fracture. There are 2 screws in lateral humeral condyle. Ther e is severe elbow joint osteoarthritis. There is an elbow joint effusion with loose body. IMPRESSION: 1. Severe elbow joint osteoarthritis. 2. Elbow joint effusion with loose body. Reviewed, dictated and finalized at location B.
--- OUTSIDE RECORDS SUMMARY | 2024-10-20 17:32 | XMS_ITS | Clinical Summary ---
Author Organization [facility] Address [address] [place] [address] Phone Care Team Providers Care Fancy Needleworker Name Role Phone Unavailable Primary Care Provider Unavailabl e Allergies No known active allergies Medications lisinopriL (PRINIVIL) 20 mg tablet Take 20 mg by mouth daily. 04/30/2024 Active propranoloL (INDERAL) 40 mg tablet Take 40 mg by mouth 2 times daily. 04/01/2024 Active omeprazole (PriLOSEC) 20 mg Capsule, Delayed Release(E.C.) Take 20 mg by mouth daily. 04/30/2024 Active ergocalciferol (VITAMIN D2) 50,000 unit capsule Take 50,000 Units by mouth every 7 days. 04/30/2024 Active CHOLECALCIFEROL, VITAMIN D3, ORAL Take 1 Tablet by mouth daily. Active Active Problems No known active problems Encounters Date Type Department Care Team Description 10/17/2024 External Device Data [facility] ABSTRACTION Provider, Abstract 10/17/2024 External Device Data [facility] ABSTRACTION Provider, Abstract 10/14/2024 External Device Data [facility]STRACTION Provider, Abstract 09/30/2024 External Device Data [facility]STRACTION Provider, Abstract 09/22/2024 External Device Data [facility] Provider, Abstract 09/03/2024 External Device Data [facility] Provider, Abstract from Last 3 Months Social History Tobacco Use Types Packs/Day Years Used Date Smoking Tobacco: Never Assessed Comments Unknown Sex and Gender Information Value Date Recorded Sex Assigned at Not on file Legal Sex Female 10:10 AM CDT Gender Identity Not on file Sexual Orientation Not on file Last Filed Vital Signs Vital Sign Reading Time Taken Comments Blood Pressure 132/86 04/30/2024 3:16 PM CDT Pulse - - Temperature - - Respiratory Rate - - Oxygen Saturation - - Inhaled Oxygen Concentration - - Weight 94.8 kg (209 lb) 04/30/2024 3:16 PM CDT Height 165.1 cm (5' 5 ) 04/30/2024 3:16 PM CDT Body Mass Index 34.78 04/30/2024 3:16 PM CDT Plan of Treatment Upcoming Encounters Date Type Department Care Team (Late st Contact Info) Description 04/30/2025 11:50 AM CDT Appointment [facility] [address] [place] [address] [place] [address] [facility] [address] [place] [id number] 04/30/2025 12:30 PM CDT Office Visit [facility] [place] [address] [place] [address] [place] [address] [facility] [address] [place] [address] Health Maintenance Due Date Last Done Comments Pre-Diabetes and Diabetes Screening 1976 DTAP/TDAP/TD VACCINES (1 - Tdap) 01/17/1995 HEPATITIS B VACCINES (1 of 3 - 19+ 3-dose series) 01/17/1995 CERVICAL CANCER SCREENING 01/17/2006 COLORECTAL SCREENING 01/17/2021 Colorectal Cancer Screening 01/17/2021 FIT-DNA Q 3 years 01/17/2021 FIT/FOBT Q 1 year 01/17/2021 Flex Sig/CT Colonography Q 5 years 01/17/2021 Preventative Visit- Commercial 08/12/2024 BREAST CANCER SCREENING 04/14/2025 04/14/2024, 04/14 INFLUENZA VACCINE Completed 05/12/2024 Procedures Procedure Name Priority Date/Time Associated Diagnosis Comments MAMMO SCREENING BILAT Routine 04/14/2024 3:49 PM CDT from Last 3 Months or Most Recently Relevant to Health Maintenance Results * MAMMO SCREENING BILAT (04/14/2024 3:49 PM CDT) Anatomical Region Laterality Modality Breast Bilateral Other us Abstract Provider MAMMO ORDERABLES Final Result from Last 3 Months or Most Recently Relevant to Health Maintenance [place] [address] CORE [id number]
--- OUTSIDE RECORDS SUMMARY | 2024-10-20 17:32 | XMS_ITS | Continuity of Care Document ---
Author Name [facility] Address [address] [place] [address] Organization [facility] Care Team Providers Care Packing Clerk Name Role Phone [facility] Unavailable Unavailable Problems Problem Status Onset Date Problem Type Date of Resolution Comme nts Source Healthy adult Active Condition Well adult (finding) Active Condition Insect Bite, Nonvenomous of Trunk, without Mention of Infection Active Diagnosis Encounters Location Location Details Encounter Type Encounter Number Reason For Visit Attending Provider ADM Date DC Date Status Source FPA FPA OUTPATIENT [id number] cough/co ngestion s Kem Cook Cancel [facility]
--- OUTSIDE RECORDS SUMMARY | 2024-10-20 17:32 | XMS_ITS | Encounter Summary ---
Author Organization [facility] Address [address] [place] [address] Care Team Providers Care Readiness Paraprofessional Name Role Phone Unavailable Primary Care Provider Unavailabl e Encounter Details Date Type Department Care Team (Late st Contact Info) Description 10/17/2024 External Device Data [facility] Provider, Abstract NO ADDRESS ON FILE Social History Tobacco Use Types Packs/Day Years Used Date Smoking Tobacco: Never Assessed Comments Unknown Sex and Gender Information Value Date Recorded Sex Assigned at Not on file Legal Sex Female 10:10 AM CDT Gender Identity Not on file Sexual Orientation Not on file documented as of this encounter Plan of Treatment Upcoming Encounters Date Type Department Care Team (Late st Contact Info) Description 04/30/2025 11:50 AM CDT Appointment [facility] [address] [place] [address] Gaby Blanc, FAMILY DEVELOPMENT EXTENSION SPECIALIST [address] [place] [address] 04/30/2025 12:30 PM CDT Office Visit [facility] [place] [address] [place] [address] Gaby Blanc, FAMILY DEVELOPMENT EXTENSION SPECIALIST [address] [place] [address] documented as of this encounter Visit Diagnoses Not on filedocumented in this encounter
== END 2024-10-20 15:32 | disposition home or self-care (01) ==
PROVIDERS: PCP Nurse Practitioner Family; Visit Provider Nurse Practitioner Family
DX: M79.602 Pain in left arm (principal); M19.022 Primary osteoarthritis, left elbow; M25.422 Effusion, left elbow; M24.022 Loose body in left elbow
CPT/HCPCS: 73080; 73090

== ENCOUNTER 2024-10-21 06:59 | Outpatient (CLI) | payer OTHER, SELFPAY ==
--- OUTSIDE RECORDS SUMMARY | 2024-10-21 07:02 | XMS_ITS | Encounter Summary ---
Author Organization [facility] Address [address] [place] [address] Care Team Providers Care Reed Dipper Name Role Phone Unavailable Primary Care Provider [...] Info) Description 04/30/2025 11:50 AM CDT Appointment [facility] [address] [place] [address] Gaby Blanc, BUTTON BRADDER [address] [place] [address] 04/30/2025 12:30 PM CDT Office Visit [facility] [place] [address] [place] [address] Gaby Blanc, BUTTON BRADDER [address] [place] [address] documented as of this encounter Visit Diagnoses Not on filedocumented in this encounter
--- OUTSIDE RECORDS SUMMARY | 2024-10-21 07:02 | XMS_ITS | Clinical Summary ---
Author Organization [facility] Address [address] [place] [address] Phone Care Team Providers Care Compliance Analyst Name Role Phone Unavailable Primary Care Provider [...] Info) Description 04/30/2025 11:50 AM CDT Appointment [facility] [address] [place] [address] [place] [address] [facility] [address] [place] [phone] 04/30/2025 12:30 PM CDT Office Visit [facility] [place] [address] [place] [address] [place] [address] [facility] [address] [place] [address] Health Maintenance Due Date Last [...] Most Recently Relevant to Health Maintenance [place] [address] [place] [address] [place]ORE [id number]
--- OUTSIDE RECORDS SUMMARY | 2024-10-21 07:02 | XMS_ITS | Continuity of Care Document ---
Author Name [facility] Address [address] [place] [address] Organization [facility] Care Team Providers Care Tmh Teacher Name Role Phone [facility] Unavailable Unavailable Problems Problem Status Onset Date Problem Type Date of Resolution Comme nts Source Healthy adult Active Condition Well adult (finding) Active Condition Insect Bite, Nonvenomous of Trunk, without Mention of Infection Active Diagnosis Encounters Location Location Details Encounter Type Encounter Number Reason For Visit Attending Provider ADM Date DC Date Status Source FPA FPA OUTPATIENT [id number] cough/co ngestion s Kem Cook Cancel [facility]
[2024-10-21 07:14] LABS: Basophils Absolute Auto 0.07 K/mm3 (0.00-0.10); Basophils Percent Auto 0.7 % (0.0-1.0); Eosinophils Absolute Auto 0.29 K/mm3 (0.02-0.50); Eosinophils Percent Auto 2.9 % (1.0-6.0); Hematocrit 41.6 % (35.0-49.0); Hemoglobin 13.4 g/dL (12.0-15.0); Immature Granulocyte Absolute 0.03 K/mm3 (0.00-0.00); Immature Granulocyte Percent A 0.3 % (0.0-0.0); Lymphocytes Absolute Auto 2.98 K/mm3 (1.10-4.50); Lymphocytes Percent Auto 30.1 % (18.0-42.0); Mean Corpuscular HGB Conc 32.2 g/dL (32-36); Mean Corpuscular Hemoglobin 29.5 pg (27.0-31.0); Mean Corpuscular Volume 91.6 fL (78.0-102.0); Mean Platelet Volume 11.6 fl (9.2-11.8); Monocytes Absolute Auto 0.52 K/mm3 (0.10-0.90); Monocytes Percent Auto 5.2 % (2.0-11.0); Neutrophils Absolute Auto 6.02 K/mm3 (1.70-7.20); Neutrophils Percent Auto 60.8 % (50.0-70.0); Platelet Count Result 269 K/mm3 (150-420); Red Blood Count 4.54 M/mm3 (4.20-5.40); Red Cell Distribution Width 12.9 % (11.6-14.4); White Blood Count 9.9 K/mm3 (4.8-10.8)
[2024-10-21 07:24] LABS: Hemoglobin A1C 5.9 % (<5.7)
[2024-10-21 08:00] LABS: Alanine Aminotransferase 27 U/L (14-59); Albumin Level 4.2 g/dL (3.4-5.0); Alkaline Phosphatase 92 U/L (46-116); Anion Gap 11 mmol/L (4-12); Aspartate Amino Transferase 14 U/L (15-37); Bilirubin,Total 0.9 mg/dL (0.00-1.00); Blood Urea Nitrogen 12 mg/dL (7-18); Calcium 9.4 mg/dL (8.5-10.1); Carbon Dioxide 26 mmol/L (21-32); Chloride 104 mmol/L (98-108); Cholesterol 257 mg/dL (0-200); Estimated Glomerular Filt Rate > 60; Glucose 101 mg/dL (70-99); HDL Direct 60 mg/dL (40-60); LDL Cholesterol Calculated 158 mg/dL (<130); Osmolality Calculated 291 mOsm/kg (285-295); Potassium 3.9 mmol/L (3.5-5.1); Sodium 141 mmol/L (136-145); Total Protein 7.2 g/dL (6.4-8.2); Triglycerides 194 mg/dL (0-150)
[2024-10-21 08:05] LABS: Thyroid Stimulating Hormone Reflex 3.29 u/IU/mL (0.36-3.74)
== END 2024-10-21 07:00 | disposition home or self-care (01) ==
LOC: CHSLAB 07:00
PROVIDERS: PCP Nurse Practitioner Family; Visit Provider Nurse Practitioner Family
DX: Z00.00 Encounter for general adult medical examination without abnormal findings (principal); E55.9 Vitamin D deficiency, unspecified; R23.2 Flushing
CPT/HCPCS: 36415; 80053; 80061; 82306; 82672; 83001; 83002; 83036; 84443; 85025

== ENCOUNTER 2025-01-13 12:40 | Outpatient (CLI) | payer OTHER, SELFPAY ==
--- OUTSIDE RECORDS SUMMARY | 2025-01-13 12:44 | XMS_ITS | Continuity of Care Document ---
Author Name [facility] Address [address] [place] [address] Organization [facility] Care Team Providers Care Ball Thread Machine Tender Name Role Phone [facility] Unavailable Unavailable Problems Problem Status Onset Date Problem Type Date of Resolution Comme nts Source Healthy adult Active Condition Well adult (finding) Active Condition Insect Bite, Nonvenomous of Trunk, without Mention of Infection Active Diagnosis Encounters Location Location Details Encounter Type Encounter Number Reason For Visit Attending Provider ADM Date DC Date Status Source FPA FPA OUTPATIENT [id number] cough/co ngestion s Kem Cook Cancel [facility]
--- OUTSIDE RECORDS SUMMARY | 2025-01-13 12:44 | XMS_ITS | Clinical Summary ---
Author Organization [facility] Address [address] [place] [address] Phone Care Team Providers Care Steam Hammer Operator Name Role Phone Unavailable Primary Care Provider [...] Encounters Date Type Department Care Team Description 12/31/2024 External Device Data [facility] ABSTRACTION Provider, Abstract 12/31/2024 External Device Data [facility] ABSTRACTION Provider, Abstract 12/30/2024 External Device Data [facility] ABSTRACTION Provider, Abstract 11/24/2024 External Device Data [facility] ABSTRACTION Provider, Abstract 10/28/2024 External Device Data [facility] ABSTRACTION Provider, Abstract 10/21/2024 External Device Data [facility] ABSTRACTION Provider, Abstract 10/20/2024 External Device Data [facility] ABSTRACTION Provider, Abstract [...] 3:16 PM CDT Height 165.1 cm (5' 5) 04/30/2024 3:16 PM CDT Body Mass Index 34.78 04/30/2024 3:16 PM CDT Plan of Treatment Upcoming Encounters Date Type Department Care Team (Late st Contact Info) Description 04/30/2025 11:50 AM CDT Appointment [facility] Boris Cueto [address] [place] [address] [place] [address] [address] [facility] [address] [place] [id number] 04/30/2025 12:30 PM CDT Office Visit [facility] Breast Surgery Boris Rom [address] [place] [address] [place] [address] [place] [phone] Health Maintenance Due Date Last Done Comments Pre-Diabetes and Diabetes Screening 1976 DTAP/TDAP/TD VACCINES (1 - Tdap) 01/17/1995 HEPATITIS B VACCINES (1 of 3 - 19+ 3-dose series) 01/17/1995 HPV/Cotest (21-29) 01/17/1997 CERVICAL CANCER SCREENING 01/17/2006 HPV/Cotest (30-65) 01/17/2006 PAP SMEAR 01/17/2006 COLORECTAL SCREENING 01/17/2021 Colorectal Cancer Screening 01/17/2021 FIT-DNA Q 3 years 01/17/2021 FIT/FOBT Q 1 year 01/17/2021 Flex Sig/CT Colonography Q 5 years 01/17/2021 BREAST CANCER SCREENING 04/14/2025 04/14/2024, 04/14 INFLUENZA VACCINE Completed 05/12/2024 Procedures Procedure Name Priority Date/Time Associated Diagnosis Comments MAMMO SCREENING BILAT Routine 04/14/2024 3:49 PM CDT from Last 3 Months or Most Recently Relevant to Health Maintenance Results * MAMMO SCREENING BILAT (04/14/2024 3:49 PM CDT) Anatomical Region Laterality Modality Breast Bilateral Mammography us Abstract Provider MAMMO ORDERABLES Final Result from Last 3 Months or Most Recently Relevant to Health Maintenance [place] [address] [address] [place] [address] CORE [id number]
--- NOTE | 2025-01-13 12:53 | ECG_ITS ---
Test Date: 2025-01-13 13:08:38 Measurements Intervals [place] Rate: 66 P: 2 MT: 172 QRS: 56 QRSD: 104 T: 30 QT: 382 QTc: 401 Interpretive Statements SINUS RHYTHM LOW QRS VOLTAGE IN PRECORDIAL LEADS MINIMAL Q WAVES- ANTEROLAT/INF LEADS BORDERLINE ECG No previous ECG available for comparison Electronically Signed On 01-13-2025 13:11:49 CDT by Delroy Comer D.O.
[2025-01-13 13:07] LABS: Basophils Absolute Auto 0.05 K/mm3 (0.00-0.10); Basophils Percent Auto 0.5 % (0.0-1.0); Eosinophils Absolute Auto 0.34 K/mm3 (0.02-0.50); Eosinophils Percent Auto 3.4 % (1.0-6.0); Hematocrit 42.2 % (35.0-49.0); Hemoglobin 13.1 g/dL (12.0-15.0); Immature Granulocyte Absolute 0.03 K/mm3 (0.00-0.00); Immature Granulocyte Percent A 0.3 % (0.0-0.0); Lymphocytes Absolute Auto 3.26 K/mm3 (1.10-4.50); Lymphocytes Percent Auto 32.3 % (18.0-42.0); Mean Corpuscular Hemoglobin 29.2 pg (27.0-31.0); Mean Platelet Volume 12.1 fl (9.2-11.8); Monocytes Absolute Auto 0.46 K/mm3 (0.10-0.90); Monocytes Percent Auto 4.6 % (2.0-11.0); Neutrophils Absolute Auto 5.94 K/mm3 (1.70-7.20); Neutrophils Percent Auto 58.9 % (50.0-70.0); Platelet Count Result 261 K/mm3 (150-420); Red Blood Count 4.49 M/mm3 (4.20-5.40); Red Cell Distribution Width 13.2 % (11.6-14.4); White Blood Count 10.1 K/mm3 (4.8-10.8)
[2025-01-13 13:25] LABS: Alanine Aminotransferase 31 U/L (6-35); Albumin Level 4.3 g/dL (3.5-5.1); Alkaline Phosphatase 66 U/L (38-126); Anion Gap 5 mmol/L (4-12); Aspartate Amino Transferase 34 U/L (14-36); Bilirubin,Total 0.6 mg/dL (0.2-1.3); Blood Urea Nitrogen 8 mg/dL (7-17); Calcium 9.5 mg/dL (8.4-10.2); Carbon Dioxide 27 mmol/L (22-30); Chloride 108 mmol/L (98-107); Estimated Glomerular Filt Rate > 60; Glucose 106 mg/dL (65-110); Lipase 69 U/L (23-300); Osmolality Calculated 288 mOsm/kg (285-295); Sodium 140 mmol/L (137-145); Total Protein 6.9 g/dL (6.3-8.2)
[2025-01-13 13:36] LABS: Troponin I < 0.012 ng/mL (0.000-0.034)
[2025-01-13 13:44] LABS: Hemoglobin A1C 5.4 % (<5.7)
[2025-01-13 18:00] LABS: Cholesterol 167 mg/dL (0-200); HDL Direct 48 mg/dL; LDL Cholesterol Calculated 89 mg/dL (<130); Triglycerides 148 mg/dL (<150)
== END 2025-01-13 12:41 | disposition home or self-care (01) ==
LOC: CHSLAB 12:42
PROVIDERS: PCP Nurse Practitioner Family; Visit Provider Nurse Practitioner Family
DX: E78.5 Hyperlipidemia, unspecified (principal); R73.03 Prediabetes; R07.89 Other chest pain; K30 Functional dyspepsia; M25.511 Pain in right shoulder
CPT/HCPCS: 36415; 80053; 80061; 83036; 83690; 84484; 85025; 93005

== ENCOUNTER 2025-01-18 07:00 | Outpatient (CLI) | payer OTHER, SELFPAY ==
--- NOTE | ~2025-01-18 | US_ITS ---
Abdominal Sonogram: Real-time sonographic imaging of the abdomen was performed. Clinical History: Pain in right shoulder Findings: The liver appears normal with no evidence of mass lesion or bile duct dilatation. Main por anna vein demonstrates normal direction of flow. The spleen is normal in size without evidence of foca l lesion. The gallbladder is well distended, and appears normal with no evidence of gallstone or wal l thickening. The common bile duct measures 3 mm. The visualized pancreas, aorta, and IVC are unrema rkable. The right kidney measures 11.0 cm in length and the left kidney measures 11.4 cm. There is no hydronephrosis or renal calculus. Impression: Unremarkable abdominal ultrasound. Reviewed, dictated and finalized at location . Impression: Unremarkable abdominal ultrasound.
--- OUTSIDE RECORDS SUMMARY | 2025-01-18 07:03 | XMS_ITS | Clinical Summary ---
Author Organization [facility] Address [address] [place] [address] Phone Care Team Providers Care Welder Machine Operator Name Role Phone Unavailable Primary Care [...] Encounters Date Type Department Care Team Description 01/12/2025 External Device Data ST[facility] ABSTRACTION Provider, Abstract [...] Info) Description 04/30/2025 11:50 AM CDT Appointment [facility] Boris Cueto [address] [place] [address] [place] [address] [place] [phone] 04/30/2025 12:30 PM CDT Office Visit [facility] Breast Surgery Boris Cueto [address] [place] [address] [place] [address] [place] [address] Health Maintenance Due Date Last [...]
--- OUTSIDE RECORDS SUMMARY | 2025-01-18 07:03 | XMS_ITS | Continuity of Care Document ---
Author Name [facility] Address [address] [place] [address] Organization [facility] Care Team Providers Care Energy Rater Name Role Phone [facility] Unavailable Unavailable Problems Problem Status Onset Date Problem Type Date of Resolution Comme nts Source Healthy adult Active Condition Well adult (finding) Active Condition Insect Bite, Nonvenomous of Trunk, without Mention of Infection Active Diagnosis Encounters Location Location Details Encounter Type Encounter Number Reason For Visit Attending Provider ADM Date DC Date Status Source FPA FPA OUTPATIENT [id number] cough/co ngestion s Kem Cook Cancel [facility]
== END 2025-01-18 07:01 | disposition home or self-care (01) ==
LOC: CHSIMG 07:01
PROVIDERS: PCP Family Medicine; Visit Provider Nurse Practitioner Family
DX: K30 Functional dyspepsia (principal); M25.511 Pain in right shoulder
CPT/HCPCS: 76700

== ENCOUNTER 2025-04-09 10:52 | Outpatient (CLI) | payer OTHER, SELFPAY ==
--- OUTSIDE RECORDS SUMMARY | 2003-08-11 19:00 | XMS_ITS | Continuity of Care Document ---
Author Name [facility] Address [address] [place] [address] Organization [facility] Care Team Providers Care Chief Lock Operator Name Role Phone [facility] Unavailable Unavailable Problems Problem Status Onset Date Problem Type Date of Resolution Comme nts Source Healthy adult Active Condition Well adult (finding) Active Condition Insect Bite, Nonvenomous of Trunk, without Mention of Infection Active Diagnosis Encounters Location Location Details Encounter Type Encounter Number Reason For Visit Attending Provider ADM Date DC Date Status Source FPA FPA OUTPATIENT [id number] cough/co ngestion s Kem Cook Cancel [facility]
--- NOTE | ~2025-04-09 | CT_ITS ---
EXAMINATION: CT BRAIN W/O DATE: 04/09/2025 11:09 INDICATION: Status post fall. Posterior head injury. Headache. TECHNIQUE: Computed tomography (CT) of the head was performed without intravenous contrast. The dose-length product was 605.33 mGy-cm. Automated exposure control and iterative reconstruction technique were employed. COMPARISON: No prior studies for comparison. FINDINGS: Normal brain parenchymal volume for age. Normal leger-white differentiation. No acute intracranial hemorrhage, infarction, mass or mass effect. No ventriculomegaly or midline shift. Midline sagittal images demonstrate a normal corpus callosum, craniovertebral junction and sella turcica. Basilar cisterns are patent. Paranasal sinuses and mastoids are pneumatized. No depressed skull fractures. IMPRESSION: 1. No acute intracranial abnormality. Reviewed, dictated and finalized at location O.
--- NOTE | ~2025-04-09 | XR_ITS ---
EXAM/ PROCEDURE: [id number] - 04/09/2025 11:10 CDT HISTORY: 50 years old Female with Fall, posterior head injury, cervical pain COMPARISON: None available TECHNIQUE: Three view(s) FINDINGS/ IMPRESSION: There are no fractures or dislocations.Multilevel degenerative changes are seen. Visualized portion of lungs are clear. Reviewed, dictated and finalized at location N.
--- OUTSIDE RECORDS SUMMARY | 2025-04-09 10:56 | XMS_ITS | Clinical Summary ---
Author Organization [facility] Address [address] [place] [address] Phone Care Team Providers Care Educational Psychology Professor Name Role Phone Unavailable Primary Care Provider [...] Encounters Date Type Department Care Team Description 03/16/2025 External Device Data [facility] ABSTRACTION Provider, Abstract 02/24/2025 External Device Data [facility] ABSTRACTION Provider, Abstract 02/24/2025 External Device Data [facility] ABSTRACTION Provider, Abstract 01/27/2025 External Device Data [facility] ABSTRACTION Provider, Abstract 01/12/2025 External Device Data STL ABSTRACTION Provider, [...] Care Team (Late st Contact Info) Description 04/23/2025 2:20 PM CDT Appointment [facility] Boris Cueto [address] [place] [address] [place] [address] [place] [address] 04/23/2025 2:45 PM CDT Office Visit [facility] Breast Surgery Boris Cueto [address] [place] [address] [place] [address] [place] [address] Health Maintenance Due Date Last [...] Flex Sig/CT Colonography Q 5 years 01/17/2021 INFLUENZA VACCINE (#1) 2025 05/12/2024 BREAST CANCER SCREENING 04/14/2025 04/14/2024, 04/14 Procedures Procedure Name Priority Date/Time Associated Diagnosis Comments MAMMO SCREENING BILAT Routine 04/14/2024 3:49 PM CDT from Last 3 Months or Most Recently Relevant to Health Maintenance Results * MAMMO SCREENING BILAT (04/14/2024 3:49 PM CDT) Anatomical Region Laterality Modality Breast Bilateral Mammography us Abstract Provider MAMMO ORDERABLES Final Result from Last 3 Months or Most Recently Relevant to Health Maintenance Insurance [facility] CORE [id number] [facility] Address: [facility] [address] [place] [address]
== END 2025-04-09 10:53 | disposition home or self-care (01) ==
PROVIDERS: PCP Nurse Practitioner Family; Visit Provider Nurse Practitioner Family
DX: S06.0XAA Concussion with loss of consciousness status unknown, initial encounter (principal); M54.2 Cervicalgia; Z91.81 History of falling
CPT/HCPCS: 70450; 72040